=== PATIENT | male | born 1950 | race Caucasian/White ===

== ENCOUNTER → 2020-08-22 08:31 | Outpatient (CLI) | payer MEDICARE, BC, SELFPAY ==
--- NOTE | ~2020-08-22 | CT_ITS ---
EXAMINATION: CT lung screening DATE: 08/22/2020 08:46 INDICATION: Personal history of tobacco dependence, prior smoker with 33 pack year history TECHNIQUE: Computed tomography (CT) of the chest was performed without intravenous contrast. The dose -length product (DLP) was 108.62 mGy-cm. Automated exposure control and iterative reconstruction tech [employer] were employed. COMPARISON: 08/18/2019 FINDINGS: Again seen are stable pulmonary nodules measuring up to 4 mm. No new or suspicious pulmonar y nodule is identified. The lungs are free of acute opacities. There is mild emphysema. No pleural ef fusion or pneumothorax is identified. No pathologically enlarged thoracic lymph nodes are identified. The heart size is normal. Calcified coronary artery atherosclerosis is noted. There is severe thorac ic spondylosis. Punctate pancreatic calcifications are consistent with chronic pancreatitis. IMPRESSION: 1. Lung-RADS category 2: Benign appearance or behavior. Continue annual screening with noncontrast lo w-dose chest CT in 12 months. Reviewed, dictated and finalized at location A. L FRONT DESK ATTENDANT IMPRESSION: 1. Lung-RADS category 2: Benign appearance or behavior. Continue annual screeni ng with noncontrast low-dose chest CT in 12 months.
== END ==
PROVIDERS: PCP Internal Medicine; Visit Provider Internal Medicine
DX: Z87.891 Personal history of nicotine dependence (principal)
CPT/HCPCS: 71271

== ENCOUNTER → 2021-08-24 10:46 | Outpatient (CLI) | payer MEDICARE, BC, SELFPAY ==
--- NOTE | ~2021-08-24 | CT_ITS ---
EXAMINATION:CT lung screening DATE: 08/24/2021 11:00 INDICATION: Personal history of cigarette smoking. Smoker who quit 5 years ago with 30 pack year hist ory. TECHNIQUE: Computed tomography (CT) of the chest was performed without intravenous contrast. Automate d exposure control and iterative reconstruction technique were employed. The dose-length product (DLP ) was 114.66 mGy-cm. COMPARISON: Chest single view 08/22/2020 FINDINGS: There is mild emphysema. There is stable mild scarring at the lung apices. There is a new 3 mm nodule in right upper lobe, likely benign. There are a few scattered 2 mm nodules, likely benign. There is minimal atelectasis bilaterally. No pleural effusion. The heart size is normal. No pericard ial effusion. There are coronary artery calcifications. Calcifications in the pancreas are consistent with chronic pancreatitis. There is severe thoracic spondylosis. IMPRESSION: 1. Lung-RADS category 2: Benign appearance or behavior. Continue annual screening with noncontrast lo w-dose chest CT in 12 months. Reviewed, dictated and finalized at location B. INUOUS CONVEYOR SCREEN DRIER IMPRESSION: 1. Lung-RADS category 2: Benign appearance or behavior. Continue annual screeni ng with noncontrast low-dose chest CT in 12 months.
== END ==
PROVIDERS: Visit Provider Internal Medicine
DX: Z12.2 Encounter for screening for malignant neoplasm of respiratory organs (principal); Z87.891 Personal history of nicotine dependence
CPT/HCPCS: 71271

== ENCOUNTER → 2022-08-27 09:23 | Outpatient (CLI) | payer MEDICARE, BC, SELFPAY ==
--- NOTE | ~2022-08-27 | CT_ITS ---
EXAMINATION: CT lung screening DATE: 08/27/2022 09:37 INDICATION: Personal history of nicotine dependence. TECHNIQUE: Computed tomography (CT) of the chest was performed without intravenous contrast. The dose -length product was 115.19 mGy-cm. Automated exposure control and iterative reconstruction technique were employed. COMPARISON: CT dated 08/24/2021 FINDINGS: Heart size is normal. No significant pleural or pericardial effusion. No thoracic lymphaden opathy. There is atherosclerosis of the aorta and coronary arteries. There is paraseptal emphysema. N o endobronchial lesions. No pneumothorax. No focal consolidation. There are small bilateral pulmonary nodules measuring 3 mm or less without significant interval change from prior examination allowing f or differences of technique. No new pulmonary nodules or masses. Calcifications of the pancreas are c onsistent with chronic pancreatitis. There is stable thoracic spondylosis. IMPRESSION: 1. Lung-RADS category 2: Benign appearance or behavior. Continue annual screening with noncontrast lo w-dose chest CT in 12 months. Reviewed, dictated and finalized at location A. L EXPERT IMPRESSION: 1. Lung-RADS category 2: Benign appearance or behavior. Continue annual screeni ng with noncontrast low-dose chest CT in 12 months.
== END ==
PROVIDERS: PCP Internal Medicine; Visit Provider Internal Medicine
DX: Z12.2 Encounter for screening for malignant neoplasm of respiratory organs (principal); Z87.891 Personal history of nicotine dependence
CPT/HCPCS: 71271

== ENCOUNTER → 2023-08-28 08:19 | Outpatient (CLI) | payer MEDICARE, BC, SELFPAY ==
--- NOTE | ~2023-08-28 | CT_ITS ---
CT Scan of the Chest without Contrast: Clinical Indication: Lung cancer screening, personal history of nicotine dependence Technique: Contiguous sections were acquired throughout the chest without intravenous contrast. Dose reduction technique was used on this scan by utilizing automated exposure control and iterative recon struction technique. The dose-length product (DLP) was 111.82 mGy-cm. COMPARISON: 08/27/2022 Findings: There is no evidence of any significant mediastinal, hilar or axillary lymphadenopathy. Coronary luciano ry calcifications are present. There is no evidence of pleural or pericardial effusion. The lungs are clear. No pulmonary nodules or infiltrates are noted. Images through the upper abdomen reveal pancreatic calcifications, consistent with chronic pancreatit is.. Impression: Lung RADS 1: Negative. 12 month follow-up screening CT advised. Reviewed, dictated and finalized at [facility]. HIATRY PHYSICIAN Impression: Lung RADS 1: Negative. 12 month follow-up screening CT advised.
== END ==
PROVIDERS: PCP Internal Medicine; Visit Provider Internal Medicine
DX: Z13.6 Encounter for screening for cardiovascular disorders (principal); F17.211 Nicotine dependence, cigarettes, in remission
CPT/HCPCS: 71271

== ENCOUNTER 2024-09-20 19:22 | Inpatient (IN) | payer MEDICARE, BC, SELFPAY ==
[2024-09-20] VITALS (33 sets, daily range): BP systolic 106–126; BP diastolic 66–76; PULSE 67–82; RESP 12–21; TEMP 36.7; O2SAT 91–97
--- NOTE | ~2024-09-20 | CT_ITS ---
Non-contrast Head CT History: Syncope Technique: Axial non-contrast imaging of the brain was performed. Dose reduction technique was used on this scan by utilizing automated exposure control and iterative reconstruction technique. The dose -length product (DLP) was 756.67 mGy-cm. Findings: There is a 1 cm hyperdense ovoid lesion which appears to be at the roof of the third ventri munira anteriorly, suggestive of colloid cyst. Focal hemorrhage is a potential alternative consideration . No other significant abnormality identified. The ventricles and subarachnoid spaces are normal in s ize. The calvarium appears normal. The visualized paranasal sinuses and mastoid air cells are clear . Impression: 1 cm hyperdense lesion which appears to be at the roof of the third ventricle, suggestive of colloid cyst. Focal hemorrhage is a potential alternative consideration. Reviewed, dictated and finalized at [facility]. M HAND Impression: 1 cm hyperdense lesion which appears to be at the roof of the third ventricle, suggestive of colloid cyst. Focal hemorrhage is a potential alternative conside ration.
--- NOTE | ~2024-09-20 | XR_ITS ---
CHEST RADIOGRAPH CLINICAL HISTORY: SYncope . COMPARISON: None available TECHNIQUE: Single portable view of the chest. FINDINGS The cardiomediastinal silhouette is unremarkable. The lungs are clear. Visualized osseous structures and soft tissues are unremarkable. IMPRESSION: No focal infiltrate or effusion. Reviewed, dictated and finalized at location A. GY TRADER
--- NOTE | ~2024-09-20 | CT_ITS ---
EXAMINATION: CT brain wo con DATE: 09/23/2024 11:14 INDICATION: Colloid cyst. TECHNIQUE: Computed tomography (CT) of the head was performed without intravenous contrast. The mA wa s adjusted according to patient size. Iterative reconstruction technique was employed. The dose-lengt h product was 605.33 mGy-cm. COMPARISON: Head CT 09/21/2024 FINDINGS: There is no acute ischemic infarct or intracranial hemorrhage. There is a stable 10 x 6 mm hyperdense mass in the anterior third ventricle, consistent with a colloid cyst. The ventricles are n ormal in size. There are likely changes of ocular lens replacement surgeries. There is mucosal thicke marcellus in the paranasal sinuses. The mastoid air cells are normal. IMPRESSION: 1. 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 Reviewed, dictated and finalized at location A. ING AGENCY MANAGER
--- NOTE | 2024-09-20 19:40 | ECG_ITS ---
Test Date: 2024-09-20 19:44:06 Measurements Intervals [place] Rate: 70 P: 21 AR: 144 QRS: 14 QRSD: 94 T: 29 QT: 356 QTc: 385 Interpretive Statements SINUS RHYTHM INCOMPLETE RIGHT BUNDLE BRANCH BLOCK CANNOT R/O SEPTAL INFARCT, AGE INDETERMINATE BORDERLINE T WAVE ABNORMALITY- INFERIOR LEADS BASELINE ARTIFACT- I, II, III, AVR, AVL, AVF, V1-V3 ABNORMAL ECG No previous ECG available for comparison Electronically Signed On 09-20-2024 19:45:57 ACADEMIC COORDINATOR by Dilan Redmond D.O.
[2024-09-20 20:09] LABS: Basophils Percent Auto 0.4 % (0.2-1.2); Eosinophils Percent Auto 0.1 % (0-4.4); Hematocrit 40.3 % (42.0-52.0); Hemoglobin 13.5 g/dL (14.0-18.0); Immature Granulocyte Absolute 0.01 K/mm3 (0.00-0.031); Immature Granulocyte Percent A 0.1 % (0-0.5); Lymphocytes Absolute Auto 0.97 K/mm3 (0.9-3.2); Lymphocytes Percent Auto 14.2 % (18.3-44.2); Mean Corpuscular HGB Conc 33.5 g/dl (32-36); Mean Corpuscular Hemoglobin 30.5 pg (26-34); Mean Corpuscular Volume 91.2 fl (80-100); Monocytes Absolute Auto 0.7 K/mm3 (0.1-0.6); Monocytes Percent Auto 9.7 % (2.6-8.5); Neutrophils Absolute Auto 5.1 K/mm3 (1.3-6.7); Neutrophils Percent Auto 75.5 % (45.5-73.1); Platelet Count Result 147 k/mm3 (150-375); Red Blood Count 4.42 M/mm3 (4.6-6.20); Red Cell Distribution Width 13.1 % (11.5-14.5); White Blood Count 6.8 K/mm3 (4.5-10.0)
[2024-09-20 20:19] LABS: Alanine Aminotransferase 26 U/L (6-50); Albumin Level 3.9 g/dL (3.5-5.1); Alkaline Phosphatase 48 U/L (38-126); Anion Gap 13 mmol/L (4-12); Aspartate Amino Transferase 31 U/L (17-59); Bilirubin,Total 0.9 mg/dL (0.2-1.3); Blood Urea Nitrogen 20 mg/dL (9-20); Calcium 8.2 mg/dL (8.4-10.2); Carbon Dioxide 22 mmol/L (22-30); Chloride 101 mmol/L (98-107); Estimated CRCL calculation 54 ml/min; Estimated Glomerular Filt Rate > 60; Glucose 121 mg/dL (65-110); Potassium 3.9 mmol/L (3.4-5.0); Sodium 136 mmol/L (137-145)
--- NOTE | 2024-09-20 20:41 | ED_ITS ---
HPI - Syncope General Chief Complaint: Syncope <Netta Andres PA-C - Last Filed: 09/21/24 00:52> Stated Complaint: Syncope <Netta Andres PA-C - Last Filed: 09/21/24 00:52> Time Seen by Provider: 09/20/24 20:04 <Netta Andres PA-C - Last Filed: 09/21/24 00:52> History of Present Illness HPI narrative: 73-year-old male with history of hyper lipidemia presents to emergency department for syncopal episode that occurred prior to arrival. Patient presents via EMS from home. is at bedside Who assist with history. States he read the dinner table per the patient slumped over lost consciousness. She immediately contacted 911. When the patient awoke, he was diaphoretic, nauseous and felt weak. When EMS got there the patient felt much better and was signing a refusal form. he does note that when EMS was taking his vital signs on their arrival, his blood pressure was low. his He was walking EMS out he began to pass out again while standing at the door, the patient was lowered to the ground by veterinary surgery technician and his . He did not his head. We woke up again he was diaphoretic and nauseous. The patient was transported to the ED for further evaluation. He denies chest pain, palpitations, shortness of breath, lower extremity edema. Patient states he has been sick with influenza like symptoms for the past 4 days including cough, congestion, generalized weakness and malaise. States he has been having difficulty hydrating himself and eating which she is attributing to the source of why he had the syncopal episodes. He also notes that he has a history of vasovagal episodes that are usually caused by dehydration . He follows with a unemployment inspector at [facility], Dr. Foote, and states he has had several workups in the past including stress test and echocardiograms which have been unremarkable. Patient also notes he has had a Holter monitor few years ago with no abnormality. Denies melena and hematochezia. Pt notes he has been told CT scans of his chest show findings concerning for emphysema but he has not had any PFTs performed. He notes he quit smoking in 2016. <Netta Andres PA-C - Last Filed: 09/21/24 00:52> Related Data Home Medications: Home Medications ?Medication ?Instructions ?Recorded ?Confirmed ?Last Taken ?Type amlodipine 2.5 mg tablet (Norvasc) 2.5 mg PO DAILY 09/20/24 09/20/24 Unknown History aspirin 81 mg tablet,delayed 81 mg PO DAILY 09/20/24 09/20/24 Unknown History release (Adult Aspirin Regimen) atorvastatin 20 mg tablet (Lipitor) 20 mg PO DAILY 09/20/24 09/20/24 Unknown History docusate sodium 100 mg capsule 100 mg PO DAILY 09/20/24 09/20/24 Unknown History (Colace) multivitamin (Daily Multi-Vitamin 1 tablet PO DAILY 09/20/24 09/20/24 Unknown History tablet) sertraline 100 mg tablet 100 mg PO DAILY 09/20/24 09/20/24 Unknown History alprazolam 0.25 mg tablet 0.125 mg PO QID PRN anxiety 09/21/24 09/21/24 Unknown History <Netta Andres PA-C - Last Filed: 09/21/24 00:52> Allergies/Adverse Reactions: Allergies Allergy/AdvReac Type Severity Reaction Status Date / Time No Known Allergies Allergy Verified 09/20/24 19:40 <Netta Andres PA-C - Last Filed: 09/21/24 00:52> Review of Systems 2 Review of Systems: All systems reviewed & are unremarkable except as noted in HPI and below <Netta Andres PA-C - Last Filed: 09/21/24 00:52> [facility] Family History Family History: Family History (Updated 09/21/24 @ 04:48 by Shweta Guzman RN) Father 3-vessel coronary artery disease Acute myocardial infarction <Netta Andres PA-C - Last Filed: 09/21/24 00:52> Social History Social History: Social History Smoking status: Former smoker Tobacco type: cigarettes Alcohol intake: current Drinks per week: 10 Substance use: never Substance use type: does not use Do You Feel Safe in your Home?: Yes Lack of Transportation: No Lack of Food: Never True Current Housing: I Have Housing Concerned About Future Housing: No Difficulty Paying Gas/Electric Bills: No Difficulty Paying for Meds: No Currently Unemployed: No Education: Bachelor's Degree Difficulty w/ Childcare or Family Care: No Spiritual care concerns: No <Netta Andres PA-C - Last Filed: 09/21/24 00:52> Exam 2 Narrative: GENERAL: Well-appearing, well-nourished, and in no acute distress. HEAD: Normocephalic, atraumatic. EYES: PERRLA and EOMI. ENT: Nares clear, no rhinorrhea or epistaxis. Mucous membranes dry NECK: Supple. CHEST: Clear to auscultation. No respiratory distress. HEART: Regular rate and rhythm. No murmur heard. Normal peripheral pulses. ABDOMEN: Soft, nontender, nondistended, normal active bowel sounds. EXTREMITIES: Normal range of motion. No edema. negative Homans bilaterally SKIN: Warm, dry, no rash. NEURO: No focal deficits. Alert and oriented x3 <Netta Andres PA-C - Last Filed: 09/21/24 00:52> Course WIREWORKER/PA Physician Supervision I was made aware of this patient around the time of their arrival. Aware patient had a syncopal episode and was initially refusing to come to hospital but had another episode with EMS present. PA told me patient is being admitted. i was available for consultation while patient in ED but otherwise did not personally evaluate them and was not directly involved in their care. < Kinza Butt MD - Last Filed: 09/21/24 17:44> Vital Signs Vital signs: Vital Signs Temperature 98.1 F 09/20/24 19:24 Pulse Rate 67 09/20/24 19:24 Respiratory Rate 14 09/20/24 19:24 Blood Pressure 108/74 09/20/24 19:24 Pulse Oximetry 95 09/20/24 19:24 Oxygen Delivery Room Air 09/20/24 19:24 Temperature 97.6 F 09/21/24 14:00 Pulse Rate 65 09/21/24 16:00 Respiratory Rate 18 09/21/24 14:00 Blood Pressure 125/70 09/21/24 14:00 Pulse Oximetry 97 09/21/24 14:00 Oxygen Delivery Nasal Cannula 09/21/24 09:43 Oxygen Flow Rate 2 09/21/24 09:43 <Netta Andres PA-C - Last Filed: 09/21/24 00:52> Vital Signs Temperature 98.1 F 09/20/24 19:24 Pulse Rate 67 09/20/24 19:24 Respiratory Rate 14 09/20/24 19:24 Blood Pressure 108/74 09/20/24 19:24 Pulse Oximetry 95 09/20/24 19:24 Oxygen Delivery Room Air 09/20/24 19:24 Temperature 97.6 F 09/21/24 14:00 Pulse Rate 65 09/21/24 16:00 Respiratory Rate 18 09/21/24 14:00 Blood Pressure 125/70 09/21/24 14:00 Pulse Oximetry 97 09/21/24 14:00 Oxygen Delivery Nasal Cannula 09/21/24 09:43 Oxygen Flow Rate 2 09/21/24 09:43 <Kinza Butt MD - Last Filed: 09/21/24 17:44> MDM - Syncope MDM Narrative Medical decision making narrative: 73-year-old male with history of hyperlipidemia reported history of several vasovagal episodes he is followed by cardiology at [facility] presents to the emergency department for 2 syncopal events that occurred prior to arrival. See HPI for further history. Triage vitals With some without blood pressure of 108/74, but otherwise unremarkable. Patient is afebrile and nontoxic appearing. Patient does appear dry on exam, fluids started. Lab work shows no leukocytosis, hemoglobin is 13.5 with no prior for comparison. Chemistries are largely unremarkable. Magnesium within normal limits. Viral swabs are positive for COVID-19 consistent with presentation. Chest x-ray without acute cardiopulmonary findings. EKG shows sinus rhythm with an incomplete right bundle-branch block, normal MT interval, normal QRS duration, normal QTC, no ischemic changes. Troponin is undetectable. BNP within normal limits. Orthostatic vital signs within normal limits. Patient became hypoxic in the ED to 92% with a good plus consistently. He was placed on 2 L nasal cannula D-dimer was obtained which is unremarkable. On repeat exam, lung sounds remain clear. Will provide DuoNeb due to possible bronchospasm and continue to monitor. after DuoNeb, patient was taken off of supplemental O2 and his O2 sats were than 89%. Was placed on 2.5 L nasal cannula now satting 96%. Plan to admit to the hospitalist for new O2 requirement in the setting of COVID-19. Discussed with hospitatlist, Dr. Lanier, who agrees to admission. Advises CT brain. Ct brain negative. Pt admitted to med/tele. <Netta Andres PA-C - Last Filed: 09/21/24 00:52> Lab Data Result diagrams: 09/21/24 05:58 09/21/24 05:58 <Netta Andres PA-C - Last Filed: 09/21/24 00:52> Labs: Lab Results 09/20/24 09/20/24 09/20/24 Range/Units 19:58 19:58 21:50 WBC 6.8 (4.5-10.0) K/mm3 RBC 4.42 L (4.6-6.20) M/mm3 Hgb 13.5 L (14.0-18.0) g/dL Hct 40.3 L (42.0-52.0) % MCV 91.2 (80-100) fl MCH 30.5 (26-34) pg MCHC 33.5 (32-36) g/dl RDW 13.1 (11.5-14.5) % Plt Count 147 L (150-375) k/mm3 MPV 10.0 (7.4-10.4) fl Immature Gran % (Auto) 0.1 (0-0.5) % Neut % (Auto) 75.5 H (45.5-73.1) % Lymph % (Auto) 14.2 L (18.3-44.2) % [place] % (Auto) 9.7 H (2.6-8.5) % Eos % (Auto) 0.1 (0-4.4) % Baso % (Auto) 0.4 (0.2-1.2) % Lymph # (Auto) 0.97 (0.9-3.2) K/mm3 [place] # (Auto) 0.7 H (0.1-0.6) K/mm3 Eos # (Auto) 0.0 (0-0.3) K/mm3 Baso # (Auto) 0.0 (0.0-0.1) K/mm3 Abs Immat Gran (auto) 0.01 (0.00-0.031) K/mm3 Absolute Neuts (auto) 5.1 (1.3-6.7) K/mm3 Absolute Nucleated RBC 0.000 (0.0-0.012) K/mm3 Nucleated RBC % 0.0 (0.0-0.2) % D-Dimer < 0.27 (<0.48) ug/mL Sodium 136 L (137-145) mmol/L Potassium 3.9 (3.4-5.0) mmol/L Chloride 101 (98-107) mmol/L Carbon Dioxide 22 (22-30) mmol/L Anion Gap 13 H (4-12) mmol/L BUN 20 (9-20) mg/dL Creatinine 1.10 (0.7-1.3) mg/dL Estim Creat Clear Calc 54 ml/min Estimated GFR > 60 (59 - ) Glucose 121 H (65-110) mg/dL Calcium 8.2 L (8.4-10.2) mg/dL Magnesium 1.9 Cancelled (1.6-2.3) mg/dL Total Bilirubin 0.9 (0.2-1.3) mg/dL AST 31 (17-59) U/L ALT 26 (6-50) U/L Alkaline Phosphatase 48 (38-126) U/L Troponin I < 0.012 (0.000-0.034) ng/mL NT-Pro-B Natriuret Pep 91 (19.9-100) pg/mL Total Protein 6.0 L (6.3-8.2) g/dL Albumin 3.9 (3.5-5.1) g/dL Influenza A (RT-PCR) Negative (Negative) Influenza B (RT-PCR) Negative (Negative) RSV (RT-PCR) Negative (Negative) SARS-CoV-2 RNA (RT-PCR) Positive A (Negative) 09/21/24 Range/Units 05:58 WBC 5.1 (4.5-10.0) K/mm3 RBC 4.34 L (4.6-6.20) M/mm3 Hgb 13.3 L (14.0-18.0) g/dL Hct 39.6 L (42.0-52.0) % MCV 91.2 (80-100) fl MCH 30.6 (26-34) pg MCHC 33.6 (32-36) g/dl RDW 12.8 (11.5-14.5) % Plt Count 143 L (150-375) k/mm3 MPV 10.0 (7.4-10.4) fl Immature Gran % (Auto) 0.2 (0-0.5) % Neut % (Auto) 80.1 H (45.5-73.1) % Lymph % (Auto) 12.1 L (18.3-44.2) % [place] % (Auto) 7.4 (2.6-8.5) % Eos % (Auto) 0.0 (0-4.4) % Baso % (Auto) 0.2 (0.2-1.2) % Lymph # (Auto) 0.62 L (0.9-3.2) K/mm3 [place] # (Auto) 0.4 (0.1-0.6) K/mm3 Eos # (Auto) 0.0 (0-0.3) K/mm3 Baso # (Auto) 0.0 (0.0-0.1) K/mm3 Abs Immat Gran (auto) 0.01 (0.00-0.031) K/mm3 Absolute Neuts (auto) 4.1 (1.3-6.7) K/mm3 Absolute Nucleated RBC 0.000 (0.0-0.012) K/mm3 Nucleated RBC % 0.0 (0.0-0.2) % D-Dimer (<0.48) ug/mL Sodium 139 (137-145) mmol/L Potassium 4.4 (3.4-5.0) mmol/L Chloride 103 (98-107) mmol/L Carbon Dioxide 24 (22-30) mmol/L Anion Gap 12 (4-12) mmol/L BUN 19 (9-20) mg/dL Creatinine 0.98 (0.7-1.3) mg/dL Estim Creat Clear Calc 60 ml/min Estimated GFR > 60 (59 - ) Glucose 122 H (65-110) mg/dL Calcium 8.4 (8.4-10.2) mg/dL Magnesium 2.1 (1.6-2.3) mg/dL Total Bilirubin (0.2-1.3) mg/dL AST (17-59) U/L ALT (6-50) U/L Alkaline Phosphatase (38-126) U/L Troponin I (0.000-0.034) ng/mL NT-Pro-B Natriuret Pep (19.9-100) pg/mL Total Protein (6.3-8.2) g/dL Albumin (3.5-5.1) g/dL Influenza A (RT-PCR) (Negative) Influenza B (RT-PCR) (Negative) RSV (RT-PCR) (Negative) SARS-CoV-2 RNA (RT-PCR) (Negative) <Netta Andres PA-C - Last Filed: 09/21/24 00:52> Lab Results 09/20/24 09/20/24 09/20/24 Range/Units 19:58 19:58 21:50 WBC 6.8 (4.5-10.0) K/mm3 RBC 4.42 L (4.6-6.20) M/mm3 Hgb 13.5 L (14.0-18.0) g/dL Hct 40.3 L (42.0-52.0) % MCV 91.2 (80-100) fl MCH 30.5 (26-34) pg MCHC 33.5 (32-36) g/dl RDW 13.1 (11.5-14.5) % Plt Count 147 L (150-375) k/mm3 MPV 10.0 (7.4-10.4) fl Immature Gran % (Auto) 0.1 (0-0.5) % Neut % (Auto) 75.5 H (45.5-73.1) % Lymph % (Auto) 14.2 L (18.3-44.2) % [place] % (Auto) 9.7 H (2.6-8.5) % Eos % (Auto) 0.1 (0-4.4) % Baso % (Auto) 0.4 (0.2-1.2) % Lymph # (Auto) 0.97 (0.9-3.2) K/mm3 [place] # (Auto) 0.7 H (0.1-0.6) K/mm3 Eos # (Auto) 0.0 (0-0.3) K/mm3 Baso # (Auto) 0.0 (0.0-0.1) K/mm3 Abs Immat Gran (auto) 0.01 (0.00-0.031) K/mm3 Absolute Neuts (auto) 5.1 (1.3-6.7) K/mm3 Absolute Nucleated RBC 0.000 (0.0-0.012) K/mm3 Nucleated RBC % 0.0 (0.0-0.2) % D-Dimer < 0.27 (<0.48) ug/mL Sodium 136 L (137-145) mmol/L Potassium 3.9 (3.4-5.0) mmol/L Chloride 101 (98-107) mmol/L Carbon Dioxide 22 (22-30) mmol/L Anion Gap 13 H (4-12) mmol/L BUN 20 (9-20) mg/dL Creatinine 1.10 (0.7-1.3) mg/dL Estim Creat Clear Calc 54 ml/min Estimated GFR > 60 (59 - ) Glucose 121 H (65-110) mg/dL Calcium 8.2 L (8.4-10.2) mg/dL Magnesium 1.9 Cancelled (1.6-2.3) mg/dL Total Bilirubin 0.9 (0.2-1.3) mg/dL AST 31 (17-59) U/L ALT 26 (6-50) U/L Alkaline Phosphatase 48 (38-126) U/L Troponin I < 0.012 (0.000-0.034) ng/mL NT-Pro-B Natriuret Pep 91 (19.9-100) pg/mL Total Protein 6.0 L (6.3-8.2) g/dL Albumin 3.9 (3.5-5.1) g/dL Influenza A (RT-PCR) Negative (Negative) Influenza B (RT-PCR) Negative (Negative) RSV (RT-PCR) Negative (Negative) SARS-CoV-2 RNA (RT-PCR) Positive A (Negative) 09/21/24 Range/Units 05:58 WBC 5.1 (4.5-10.0) K/mm3 RBC 4.34 L (4.6-6.20) M/mm3 Hgb 13.3 L (14.0-18.0) g/dL Hct 39.6 L (42.0-52.0) % MCV 91.2 (80-100) fl MCH 30.6 (26-34) pg MCHC 33.6 (32-36) g/dl RDW 12.8 (11.5-14.5) % Plt Count 143 L (150-375) k/mm3 MPV 10.0 (7.4-10.4) fl Immature Gran % (Auto) 0.2 (0-0.5) % Neut % (Auto) 80.1 H (45.5-73.1) % Lymph % (Auto) 12.1 L (18.3-44.2) % [place] % (Auto) 7.4 (2.6-8.5) % Eos % (Auto) 0.0 (0-4.4) % Baso % (Auto) 0.2 (0.2-1.2) % Lymph # (Auto) 0.62 L (0.9-3.2) K/mm3 [place] # (Auto) 0.4 (0.1-0.6) K/mm3 Eos # (Auto) 0.0 (0-0.3) K/mm3 Baso # (Auto) 0.0 (0.0-0.1) K/mm3 Abs Immat Gran (auto) 0.01 (0.00-0.031) K/mm3 Absolute Neuts (auto) 4.1 (1.3-6.7) K/mm3 Absolute Nucleated RBC 0.000 (0.0-0.012) K/mm3 Nucleated RBC % 0.0 (0.0-0.2) % D-Dimer (<0.48) ug/mL Sodium 139 (137-145) mmol/L Potassium 4.4 (3.4-5.0) mmol/L Chloride 103 (98-107) mmol/L Carbon Dioxide 24 (22-30) mmol/L Anion Gap 12 (4-12) mmol/L BUN 19 (9-20) mg/dL Creatinine 0.98 (0.7-1.3) mg/dL Estim Creat Clear Calc 60 ml/min Estimated GFR > 60 (59 - ) Glucose 122 H (65-110) mg/dL Calcium 8.4 (8.4-10.2) mg/dL Magnesium 2.1 (1.6-2.3) mg/dL Total Bilirubin (0.2-1.3) mg/dL AST (17-59) U/L ALT (6-50) U/L Alkaline Phosphatase (38-126) U/L Troponin I (0.000-0.034) ng/mL NT-Pro-B Natriuret Pep (19.9-100) pg/mL Total Protein (6.3-8.2) g/dL Albumin (3.5-5.1) g/dL Influenza A (RT-PCR) (Negative) Influenza B (RT-PCR) (Negative) RSV (RT-PCR) (Negative) SARS-CoV-2 RNA (RT-PCR) (Negative) <Kinza Butt MD - Last Filed: 09/21/24 17:44> Discharge Plan Discharge Clinical Impression: COVID-19, Acute hypoxic respiratory failure Syncope Qualifiers: Syncope type: unspecified Qualified Code(s): R55 - Syncope and collapse <Netta Andres PA-C - Last Filed: 09/21/24 00:52> Patient Disposition: Still a Patient <Netta Andres PA-C - Last Filed: 09/21/24 00:52> Condition: Stable <Netta Andres PA-C - Last Filed: 09/21/24 00:52>
[2024-09-20 20:45] LABS: Influenza A QL RT-PCR Negative (Negative); Influenza B QL RT-PCR Negative (Negative); RSV RNA, RT-PCR Negative (Negative); SARS-CoV-2 RNA PCR Positive (Negative)
[2024-09-20 20:56] LABS: Magnesium 1.9 mg/dL (1.6-2.3)
[2024-09-20 21:09] LABS: NT Pro B Type Natriuretic Pept 91 pg/mL (19.9-100); Troponin I < 0.012 ng/mL (0.000-0.034)
--- NOTE | 2024-09-20 21:12 | PC.NURSE ---
Patient placed on 2L via NC for RA sat of 88%. PA notified.
--- OUTSIDE RECORDS SUMMARY | 2024-09-20 21:14 | XMS_ITS | Clinical Summary ---
Author Organization [facility] Address [address] [place] [address] Care Team Providers Care Rental Sales Agent Name Role Phone Chase Soler MD Primary Care Provider [phone] Micheline Crews MD Unavailable [phone] Isiah Martinez MD Unavailable [phone] Cuco Smith MD Unavailable [phone] Allergies No known active allergies Medications ibuprofen 200 MG tablet Take 1 tablet (200 mg total) by mouth every 8 (eight) hours as needed for Pain. Active Multiple Vitamins-Minerals (MULTIVITAMIN ADULT EXTRA C OR) Take 1 tablet by mouth as needed. Active aspirin EC 81 MG tablet Take 1 tablet (81 mg total) by mouth daily. Active docusate sodium 100 MG capsule Take 1 capsule (100 mg total) by mouth daily. Active ORAL APPLIANCE, DME,Indications:Obstruc tive sleep apnea syndrome, mild,Insomnia, unspecified type Take 1 Device by mouth nightly. 1 Device 022 Active amLODIPine (NORVASC) 2.5 MG tablet TAKE 1 TABLET(2.5 MG) BY MOUTH DAILY 90 tablet 3 024 Active sertraline (ZOLOFT) 100 MG tabletIndications:Obses sive-compulsive disorder, unspecified type TAKE 1 TABLET(100 MG) BY MOUTH DAILY 90 tablet 1 024 Active atorvastatin (LIPITOR) 40 MG tabletIndications:Pure hypercholesterolemia Take 1 tablet (40 mg total) by mouth daily. 90 tablet 3 025 Active ALPRAZolam (XANAX) 0.25 MG tabletIndications:Obses sive-compulsive disorder, unspecified type TAKE 1 TABLET(0.2 5 MG) BY MOUTH EVERY NIGHT NEEDED FOR SLEEP 30 tablet 025 Active ALPRAZolam (XANAX) 0.25 MG tabletIndications:Obses sive-compulsive disorder, unspecified type TAKE 1 TABLET(0.2 5 MG) BY MOUTH EVERY NIGHT NEEDED FOR SLEEP 30 tablet 024 2024 Discontinued Active Problems Problem Noted Date Diagnosed Date Primary insomnia 07/17/2022 Obstructive sleep apnea syndrome, mild Coronary artery calcification seen on CT scan Constipation 08/12/2020 Cataract 12/24/2018 Bilateral carotid artery stenosis 12/07/2018 Mild emphysema (CMS/HCC HHS/HCC) 08/15/2018 Overview (08/15/2018): On CT from 08/08/2018 Abnormal ECG 02/03/2018 Family history of premature CAD 02/03/2018 OCD (obsessive compulsive disorder) 06/13/2016 BPH with urinary obstruction 12/06/2015 Anxiety state 12/05/2006 Pure hypercholesterolemia Resolved Problems Problem Noted Date Diagnosed Date Resolved Date Scrotal mass 12/20/2019 01/17/2023 Near syncope 12/03/2019 01/17/2023 Smoker 09/09/2019 01/17/2023 Encounters Date Type Department Care Team Description 09/04/2024 Telephone [facility] Family & Internal Medicine [address] [phone] Chase Soler MD Radiology Results (CT lung screening) 08/31/2024 9:33 AM MIX MAKER - 08/31/2024 11:59 PM MIX MAKER Hospital Encounter [facility] [address] [place] [address] Chase Soler MD Discharge Disposition: Home or Self Care (Routine Discharge) 08/31/2024 Scan [facility] SRVCS Scanned, Doc Med Group CT (SCAN) 08/31/2024 Travel 08/19/2024 1:00 PM MIX MAKER Office Visit [facility] Family & Internal Medicine [address] [phone] Chase Soler MD Follow Up; Obsessive Compulsive Disorder; Hyperlipidemia (Patient was told to increase statin dose by cardiology, patient would like to discuss with PCP.); Coronary Artery Disease; Obstructive Sleep Apnea ; Emphysema; Lab Results (Patient noticed PSA value is slightly increased from last check); Orders (Patient would like LDCT lung screening ordered) 08/19/2024 Travel 07/30/2024 Travel 07/02/2024 MyChart Message Enc [facility] Family & Internal [address] [phone] Chase Soler MD July lab orders (at [facility]) 06/24/2024 11:30 AM MIX [facility]KER [facility] [address] Micheline Crews MD Coronary Artery Disease; Lipids; Follow Up (annual) 06/24/2024 Travel from Last 3 Months Immunizations Name Administration Dates Next Due Fluzone High Dose - >Age 65 (Prefilled Syringe) 05/27/2023,05/25/2022,05/31/2020,2018,06/26/2017,06/13/2016 Influenza (Generic) 06/02/2018 Influenza Adult (Generic) 05/25/2022,06/01/2021 MODERNA COVID-19 (12+) MRNA, LNP-S, PF, 100 MCG/ 0.5 ML DOSE 06/12/2021,10/19/2020,09/21/2020 MODERNA COVID-19 (PROBATION MANAGER TEO NAEEM), MRNA, LNP-S, PF, 50 MCG/ 0.25 ML DOSE 11/24/2021 Pneumococcal (Pneumovax 23) 01/15/2022, 3 Pneumococcal (Prevnar 13) 12/11/2016 Shingrix 09/20/2023,07/23/2023 Td (Tenivac) preservative free 04/19/2005 Td, Adsorbed, Preservative F ree, Adult Use, Lf Unspecified 04/19/2005 Tdap (Generic) 06/13/2016,06/13/2016 Zoster (Zostavax) [address] Unt/0.65Ml 04/25/2011 Family History Medical History Relation Comments Heart Disease Brother 1 Open Heart Brother 1 Heart Attack Father Heart Disease Father Mental Health Father Open Heart Father pacemaker Maternal Grandfather schizophrenia Maternal Grandmother Early Mother Mental Health Mother nosebleed Mother of bleeding after child Relation Status Comments Brother 1 (Age 68) Brother 2 Alive Father (Age 83) Maternal Grandfather (Age 88) Maternal Grandmother Mother (Age 29) Paternal Grandfather (Age 87) Paternal Grandmother (Age 75) Sister Alive Social History Tobacco Use Types Packs/Day Years Used Date Smoking Tobacco: Former Cigarettes 1 33 1 08/12/1982 - 06/12/2016 Smokeless Tobacco: Never Tobacco Cessation:Counseling Given: Yes Alcohol Use Standard Drinks/Week Comments Yes 10 (1 standard drink = 0.6 oz pure alcohol) 2 drinks a day of red wine or beer AUDIT-C Answer Date Recorded Frequency of Alcohol Consumption 4 or more times a week 05/08/2018 Average Number of Drinks 1 or 2 018 Frequency of Binge Drinking Never 04/13 PHQ-2 Answer Date Recorded Patient Health Questionnaire-2 Score 0 08/19/2024 Sex and Gender Information Value Date Recorded Sex Assigned at Male 07/01/2018 9:32 AM MIX MAKER Legal Sex Male 6:12 PM CDT Gender Identity Male 07/01/2018 9:32 AM MIX MAKER Sexual Orientation Straight 07/01/2018 9: 32 AM MIX MAKER Occupation Industry Job Start Date Job End Date social security/ disability program in [place] Not on file Not on file Not on file Last Filed Vital Signs Vital Sign Reading Time Taken Comments Blood Pressure 110/84 08/19/2024 1:43 PM MIX MAKER Pulse 66 08/19/2024 1:43 PM MIX MAKER Temperature 36.8 C (98.2 F) 08/19/2024 1:43 PM MIX MAKER Respiratory Rate 18 08/19/2024 1:43 PM MIX MAKER Oxygen Saturation 96% 08/19/2024 1:43 PM MIX MAKER Inhaled Oxygen Concentration - - Weight 84.8 kg (186 lb 14.4 oz) 08/19/2024 1:43 PM MIX MAKER Height 177.8 cm (5' 10 ) 08/19/2024 1:43 PM MIX MAKER Body Mass Index 26.82 08/19/2024 1:43 PM MIX MAKER Plan of Treatment Upcoming Encounters Date Type Department Care Team (Late st Contact Info) Description 02/16/2025 8:00 AM CDT Laboratory Only [facility] Family & Internal Medicine [address] [phone] Chase Soler MD [address] [place] [address] 02/23/2025 1:20 PM CDT Office Visit [facility] Family & Internal [address] [phone] Chase Soler MD [address] [place] [address] 06/24/2025 11:00 AM MIX MAKER Office Visit [facility] [address] [place], [place] [phone] Fanny Day APRN [facility]. [address] [place], [place] [address] Health Maintenance Due Date Last Done Comments Annual Medicare Wellness Visit 01/12/2022 01/11/2021 RSV Immunization or 60+ Years (1 - Risk 60-74 years 1-dose series) 12/19/2024 Postponed fro m 2009 (Going to Outside Clinic) Colorectal Cancer Screening Colonoscopy (10 Years) 05/15/2026 05/15/2016 DTaP, Tdap and Td Vaccines (3 - Td or Tdap) 06/13/2026 06/13/2016, 06/13/2016, 04/19/2005, Additional history exists AAA SCREENING Completed 05/31/2012 Hepatitis C Completed 12/17/2016 Pneumococcal Vaccine: 65+ Years Completed 01/15/2022, 12/11/2016, 05/12/2013 Zoster Vaccines Completed 09/20/2023, 07/12, 04/25/2011 COVID-19 Vaccine Completed 06/04/2024, , 05/25/2022, Additional history exists Influenza Adult Completed 06/13/2024, 05/12, 05/25/2022, Additional history exists PHQ-2 (Physician [place]) Completed 08/19/2024 Meningococcal B Vaccine Aged Out No l onger eligible based on patient's age to complete this topic Meningococcal Vaccine Aged Out No addis vern eligible based on patient's age to complete this topic RSV Immunizations Under 20 Months Aged Out No longer eligible based on patient's age to complete this topic Medical Devices Implanted Type Area Glass Blower Helper Device Identifier Shelf Expiration Date Model / Serial / Lot Urolift - [id number] Implanted:Qty: 4 on 06/12/2019 by Cuco Smith MD at [facility] N/A: Prostate TELEFLEX MEDICAL 09/28/2020 [id number] / / [id number] Procedures Procedure Name Priority Date/Time Associated Diagnosis Comments CT LUNG SCREENING Routine 08/31/2024 9:49 AM MIX MAKER Nicotine dependence, cigarettes, in remission CT GENERIC 08/31/2024 PSA, TOTAL AND FREE Routine 07/22/2024 8:08 AM MIX MAKER TSH W/REFLEX Routine 07/22/2024 8:08 AM MIX MAKER URINALYSIS Routine 07/22/2024 8:08 AM MIX MAKER CBC W/DIFF AUTOMATED Routine 07/22/2024 8:08 AM MIX MAKER COMPREHENSIVE METABOLIC PANEL Routine 07/22/2024 8:08 AM MIX MAKER LIPID PANEL Routine 07/22/2024 8:08 AM MIX MAKER CK (CPK) Routine 07/22/2024 8:08 AM MIX MAKER Pure hypercholesterolemia ELECTROCARDIOGRAM (NON MIDMARK ACQUIRED) Routine 06/24/2024 11:28 AM MIX MAKER Pure hypercholesterolemia HEPATITIS C ANTIBODY Routine 12/17/2016 9:22 AM CDT COLONOSCOPY GENERIC (SCAN ORDER) Routine 05/15/2016 from Last 3 Months or Most Recently Relevant to Health Maintenance Results * CT LUNG SCREENING (08/31/2024 9:49 AM MIX MAKER) Anatomical Region Laterality Modality Chest Computed Tomogra phy 09/02/2024 9:51 AM MIX MAKER Impressions 09/02/2024 9:54 AM MIX MAKER IMPRESSION: 1. Lung-RADS Category 2: Benign appearance or behavior. Nodules with a very low likelihood of becoming a clinically active cancer due to size or lack of growth. 2. LUNG-RADS category S: Negative, no new/unknown potentially significant incidental findings requiring urgent additional evaluation. 3. Other incidental findings as above. RECOMMENDATIONS: Follow-up LDCT Chest in 12 months (on or around 09/01/2025). Referred By: CHASE SOLER Interpreted By: Deo Guerrero MD, 09/02/2024 9:51 AM Narrative 09/02/2024 9:54 AM MIX MAKER [address] [address] EXAM: LUNG SCREENING LOW-DOSE CT THORAX WITHOUT CONTRAST DATE: 08/31/2024 HISTORY: Asymptomatic patient meeting NCCN high-risk criteria for lung screening. COMPARISON: None available. TECHNIQUE: Noncontrast, helical, low-dose CT (LDCT) chest per standard departmental protocol. Automated exposure control was utilized for dose reduction. FINDINGS: Lung Screening Specific (LUNG-RADS): 2 mm solid nodule right middle lobe axial image 95. Baseline. Lung RADS 2. 3 mm solid nodule right upper lobe axial image 58. Baseline. Lung RADS 2. 3 mm solid nodule left upper lobe axial image 92. Baseline. Lung RADS 2. Potentially Significant Incidentals (LUNG-RADS category S): None. Pulmonary Incidentals: Mild upper lobe predominant pulmonary emphysema. Small right Bochdalek hernia. Scattered calcified granulomatous disease. Other Incidentals: Old healed left rib fracture. Ghbr-vx-[id number] thoracic spondylosis. Mild to moderate atherosclerotic calcific lesions of the thoracic aorta and coronary arteries. No suspicious adenopathy. Pancreatic parenchymal calcifications which can be seen in setting of chronic pancreatitis. Procedure Note Deo Guerrero MD - 09/02/[address] [address] EXAM: LUNG SCREENING LOW-DOSE CT THORAX WITHOUT CONTRAST DATE: 08/31/2024 HISTORY: Asymptomatic patient meeting NCCN high-risk criteria for lungscreening. COMPARISON: None available. TECHNIQUE: Noncontrast, helical, low-dose CT (LDCT) chest per standarddepartmental protocol. Automated exposure control was utilized for dosereduction. FINDINGS: Lung Screening Specific (LUNG-RADS): 2 mm solid nodule right middle lobe axial image 95. Baseline. Lung RADS2. 3 mm solid nodule right upper lobe axial image 58. Baseline. Lung RADS2. 3 mm solid nodule left upper lobe axial image 92. Baseline. Lung RADS2. Potentially Significant Incidentals (LUNG-RADS category S): None. Pulmonary Incidentals: Mild upper lobe predominant pulmonary emphysema.Small right Bochdalek hernia. Scattered calcified granulomatousdisease. Other Incidentals: Old healed left rib fracture. Xxhs-vk-jkxtncdtstpfqwze spondylosis. Mild to moderate atherosclerotic calcific lesionsof the thoracic aorta and coronary arteries. No suspicious adenopathy.Pancreatic parenchymal calcifications which can be seen in setting ofchronic pancreatitis. IMPRESSION: 1. Lung-RADS Category 2: Benign appearance or behavior. Nodules with momo low likelihood of becoming a clinically active cancer due to size orlack of growth. 2. LUNG-RADS category S: Negative, no new/unknown potentially significantincidental findings requiring urgent additional evaluation. 3. Other incidental findings as above. RECOMMENDATIONS: Follow-up LDCT Chest in 12 months (on or around09/01/2025). Referred By: CHASE SOLER Interpreted By: Deo Guerrero MD, 09/02/2024 9:51 AM us Chase Soler MD CT Final Result * CT GENERIC (08/31/2024) Anatomical Region Laterality Modality Other 08/31/2024 [facility] Scanned SCANNING Final Resu lt * TSH W/REFLEX (07/22/2024 8:08 AM MIX MAKER) TSH 2.82 0.40 - 4.50 mIU/L [facility] 07/22/2024 8:08 AM MIX MAKER 07/22/2024 8:19 AM MIX MAKER Narrative [facility] [place] [facility] - 07/24/2024 2:30 PM MIX MAKER FASTING:YES FASTING: YES Resulting Agency Comment Performing Organization Information: Site ID: RENEE Name: [facility] Address: [address] [place] [phone] Director: Rush Harvey MD Chase Soler MD LABORATORY Final Result [facility] [employer] [facility] [id number] [place] [address], * URINALYSIS (07/22/2024 8:08 AM MIX MAKER) COLOR (U) YELLOW YELLOW [facility] APPEARANCE SEMEN CLEAR CLEAR [facility] SPECIFIC GRAVITY (U) 1.014 1.001 - 1.035 [facility] PH (U) 7.5 5.0 - 8.0 [facility] URINE GLUCOSE NEGATIVE NEGATIVE [facility] KETONE (U) NEGATIVE NEGATIVE [facility] BLOOD (U) NEGATIVE NEGATIVE [facility] PROTEIN (U) NEGATIVE NEGATIVE [facility] 07/22/2024 8:08 AM MIX MAKER 07/22/2024 8:19 AM MIX MAKER Narrative [facility] [place] [facility] - 07/24/2024 2:30 PM MIX MAKER FASTING:YES FASTING: YES Resulting Agency Comment Performing Organization Information: Site ID: RENEE Name: [facility] Address: [address] [place] [address], [place] [address] Director: Rush Harvey MD us Chase Soler MD URINE ORDERABLES Final Result [facility] [place] [place] [address] [address] [address], * (ABNORMAL) COMPREHENSIVE METABOLIC PANEL (07/22/2024 8:08 AM MIX MAKER) GLUCOSE 102(H) 65 - 99 mg/dL [facility] Comment: Fasting reference interval For someone without known diabetes, a glucose value between 100 and 125 mg/dL is consistent with prediabetes and should be confirmed with a follow-up test. BUN 18 7 - 25 mg/dL [facility] [email or web address] [facility] CREATININE S/P/B 1.11 0.70 - 1.28 mg/dL [facility] [email or web address] [facility] GFR ESTIMATE 70 > OR = 60 mL/min/1. 73m2 [facility] [email or web address] [facility] BUN CREATININE RATIO SEE NOTE: (calc) [facility] [email or web address] [facility] Comment: Not Reported: BUN and Creatinine are within reference range. SODIUM S/P/B 139 135 - 146 mmol/L [facility] [email or web address] [facility] POTASSIUM S/P/B 4.2 3.5 - 5.3 mmol/L [facility] CHLORIDE S/P/B 103 98 - 110 mmol/L [facility] CO2 27 20 - 32 mmol/L [facility] [email or web address] [facility] CALCIUM S/P/B 9.1 8.6 - 10.3 mg/dL [facility] [email or web address] [facility] TOTAL PROTEIN S/P/B 6.7 6.1 - 8.1 g/dL [facility] [email or web address] [facility] ALBUMIN S/P/B 4.3 3.6 - 5.1 g/dL [facility] [email or web address] [facility] GLOBULIN 2.4 1.9 - 3.7 g/dL (calc) [facility] [email or web address] [facility] ALBUMIN/GLOBULI N RATIO 1.8 1.0 - 2.5 (calc) [facility] DIAGNOSTICS [facility] BILIRUBIN TOTAL S/P/B 0.7 0.2 - 1.2 mg/dL [facility] DIAGNOSTICS [facility] ALKALINE PHOSPHATASE S/P/B 58 35 - 144 U/L [facility] [email or web address] [facility] AST 20 10 - 35 U/L [facility] [email or web address] [facility] ALT 21 9 - 46 U/L [employer] [facility] 07/22/2024 8:08 AM MIX MAKER 07/22/2024 8:19 AM MIX MAKER Narrative [facility] - 07/24/2024 2:30 PM MIX MAKER FASTING:YES FASTING: YES Resulting Agency Comment Performing Organization Information: Site ID: [place] Name: [facility] Address: [address] [address] Director: Rush Harvey MD Chase Soler MD LABORATORY Final Result [facility] [place] [address] [address] [address], * LIPID PANEL (07/22/2024 8:08 AM MIX MAKER) CHOLESTEROL 158 <200 mg/dL [facility] HDL 45 > OR = 40 mg/dL [facility] TRIGLYCERIDES 83 <150 mg/dL [facility] LDL (CALCULATED) 96 mg/dL (calc) [facility] Comment: Reference range: <100 Desirable range <100 mg/dL for primary prevention; <70 mg/dL for patients with CHD or diabetic patients with > or = 2 CHD risk factors. LDL-C is now calculated using the Ulices-Hanane calculation, which is a validated novel method providing better accuracy than the Friedewald equation in the estimation of LDL-C. Uilces GONZALEZ et al. CARLTON. 2013;310(19): 0980-4381 (http://education.[employer]/faq/JVE783) CHOL/HDL RATIO 3.5 <5.0 (calc) [facility] NON HDL CHOLESTEROL 113 <130 mg/dL (calc) [facility] Comment: For patients with diabetes plus 1 major ASCVD risk factor, treating to a non-HDL-C goal of <100 mg/dL (LDL-C of <70 mg/dL) is considered a therapeutic option. 07/22/2024 8:08 AM MIX MAKER 07/22/2024 8:19 AM MIX MAKER Narrative [facility] - 07/24/2024 2:30 PM MIX MAKER FASTING:YES FASTING: YES Resulting Agency Comment Performing Organization Information: Site ID: [place]ENE Name: Fl[facility] Miller Address: [address] [phone] Director: Rush Harvey MD us Chase Soler MD LABORATORY Final Result [facility] [address] [address] [address], [place] * (ABNORMAL) PSA, TOTAL AND FREE (07/22/2024 8:08 AM MIX MAKER) PSA TOTAL 6.9(H) < OR = 4.0 ng/mL [facility] PSA Free 1.7 ng/mL [facility] PSA % Free 25(L) >25 % (calc) [facility] Comment: PSA(ng/mL) Free PSA(%) Estimated(x) Probability of Cancer(as%) 0-2.5 (*) Approx. 1 2.6-4.0(1) 0-27(2) 24(3) 4.1-10(4) 0-10 56 11-15 28 16-20 20 21-25 16 >or =26 8 >10(+) N/A >50 References:(1)Josiasona et al.:Urology 60: 469-474 (2001) (2)Josiasona et al.:J.Urol 168: 922-925 (2001) Free PSA(%) Sensitivity(%) Specificity(%) < or = 25 85 19 < or = 30 93 9 (3)Catalona et al.:CARLTON 277: 3372-1836 (1996) (4)Catalona et al.:CARLTON 279: 2086-2523 (1997) (x)These estimates vary with age, ethnicity, family history and PATTI results. (*)The diagnostic usefulness of % Free PSA has not been established in patients with total PSA below 2.6 ng/mL (+)In men with PSA above 10 ng/mL, prostate cancer risk is determined by total PSA alone. The Total PSA value from this assay system is standardized against the equimolar PSA standard. The test result will be approximately 20% higher when compared to the WHO-standardized Total PSA (Siemens assay). Comparison of serial PSA results should be interpreted with this fact in mind. PSA was performed using the Gaby [place] Immunoassay method. Values obtained from different assay methods cannot be used interchangeably. PSA levels, regardless of value, should not be interpreted as absolute evidence of the presence or absence of disease. 07/22/2024 8:08 AM MIX MAKER 07/22/2024 8:19 AM MIX MAKER Narrative [facility] [place] [facility] - 07/24/2024 2:30 PM MIX MAKER FASTING:YES FASTING: YES Resulting Agency Comment Performing Organization Information: Site ID: [place] Name: [facility] Address: [address] [place] [phone] Director: Pedro Bright Chase Soler MD LABORATORY Final Result [facility] [address] [place] [address] * CBC W/DIFF AUTOMATED (07/22/2024 8:08 AM MIX MAKER) WBC 4.6 3.8 - 10.8 Thousand/u L [employer] [facility] RBC 5.24 4.20 - 5.80 Million/uL [facility] HGB 16.2 13.2 - 17.1 g/dL [facility] HCT 49.2 38.5 - 50.0 % [facility] MCV 93.9 80.0 - 100.0 fL [facility] [place] MCH 30.9 27.0 - 33.0 pg [facility] MCHC 32.9 32.0 - 36.0 g/dL [facility] Comment: For adults, a slight decrease in the calculated MCHC value (in the range of 30 to 32 g/dL) is most likely not clinically significant; however, it should be interpreted with caution in correlation with other red cell parameters and the patient's clinical condition. RDW 12.7 11.0 - 15.0 % [facility] PLT 219 140 - 400 Thousand/u L [facility] MPV 10.1 7.5 - 12.5 fL [facility] ABS. NEUTROPHILS 2,259 1,500 - 7,800 cells/uL [facility] ABS. LYMPHOCYTES 1,803 850 - 3,900 cells/uL [facility] ABS. MONOCYTES 400 200 - 950 cells/uL [facility] ABS. EOSINOPHILS 87 15 - 500 cells/uL [facility] ABS. BASOPHILS 51 0 - 200 cells/uL [facility] SEG NEUTROPHILS 49.1 % [facility] LYMPHOCYTES 39.2 % [facility] MONOCYTES 8.7 % [facility] EOSINOPHILS 1.9 % [facility] BASOPHILS 1.1 % [facility] 07/22/2024 8:08 AM MIX MAKER 07/22/2024 8:19 AM MIX MAKER Narrative [facility] [place] [facility] - 07/24/2024 2:30 PM MIX MAKER FASTING:YES FASTING: YES Resulting Agency Comment Performing Organization Information: Site ID: RENEE Name: [facility] [employer] Address: [address] [place] [phone] Director: Rush Harvey MD us Chase Soler MD LABORATORY Final Result Performing Organization Address [facility] Co de Phone Number [facility] [place] [facility] [place] [facility] [address] [address], [place] * CK (CPK) (07/22/2024 8:08 AM MIX MAKER) TOTAL CK 178 44 - 196 U/L [facility] [email or web address] [facility] 07/22/2024 8:08 AM MIX MAKER 07/22/2024 8:19 AM MIX MAKER Narrative [facility] [place] [facility] - 07/24/2024 2:30 PM MIX MAKER FASTING:YES FASTING: YES Resulting Agency Comment Performing Organization Information: Site ID: RENEE Name: [facility] [employer] Address: [address] [place] [phone] Director: Rush Harvey MD us Chase Soler MD LABORATORY Final Result Performing Organization Address City/[facility] Co de Phone Number [facility] [place] [facility] [address] [address], [place] * ELECTROCARDIOGRAM (06/24/2024 11:28 AM MIX MAKER) 06/24/2024 11:2 8 AM MIX MAKER Narrative REJI RIVERA - 06/25/2024 8:08 AM MIX MAKER Reji Rivera [facility] Test Date: 2024-06-24 Pat Name: [facility] Department: 112 Room: Gender: Male Veneer Lathe Operator: [email or web address] : [id number] Requested By: MICHELINE CREWS Order Number: [id number] [place] MD: Micheline Crews Measurements Intervals [place] Rate: 66 P: 50 WV: 116 QRS: 15 QRSD: 87 T: 15 QT: 379 QTc: 400 Interpretive Statements SINUS RHYTHM WITH SHORT WV INTERVAL SEPTAL MYOCARDIAL INFARCTION, PROBABLY OLD Since prior tracing, no significant change MAKER Procedure Note Micheline Crews MD - 06/25/2024 Reji Rivera [facility] Test Date: 2024-06-24 Pat Name: [facility] Department: 112 Room: Gender: Male Veneer Lathe Operator: : 1950 Requested By: MICHELINE CREWS Order Number: [id number] [place] MD: Micheline Crews Measurements Intervals [place] Rate: 66 P: 50 WV: 116 QRS: 15 QRSD: 87 T: 15 QT: 379 QTc: 400 Interpretive Statements SINUS RHYTHM WITH SHORT [place]V INTERVAL SEPTAL MYOCARDIAL INFARCTION, PROBABLY OLD Since prior tracing, no significant change MAKER us Micheline Crews MD PROCEDURES-ORDERABLE NO CHARGE Final Result REJI RIVERA * HEPATITIS C ANTIBODY (12/17/2016 9:22 AM CDT) HEPATITIS C AB NON-REACT YADIEL NON-REACT YADIEL [facility] TO EPIC CONVERSION SIGNAL TO CUTOFF 0.02 <1.00 [facility] TO EPIC CONVERSION Comment: Result Comment: Test Performed at: [facility] [address] [place] [address] SOHEILA TORRES DO,MPH 12/17/2016 9:22 AM CDT 12/17/2016 9:22 AM CDT Narrative [facility] TO EPIC CONVERSION - 12/18/2016 7:25 AM CDT Result Communication: Call patient with results Chase Soler MD LABORATORY Final Result [facility] TO EPIC CONVERSION * COLONOSCOPY (05/15/2016) Documents Scanned SCANNING Final Result from Last 3 Months or Most Recently Relevant to Health Maintenance Insurance [facility] MEDICARE [facility] MEDICARE Care Teams Rental Sales Agent Relationship Specialty Start Date End Date Chase Soler MD [address] [place] [address] PCP - General 05/15/16 Micheline Crews MD [facility]. [address] [address] [place] [employer]er [employer] Boat CARDIOVASCULAR DISEASE 01/20/18 Isiah Martinez MD [facility]. [facility] [address] [place] [address] Surgeon HAND SURGERY 09/15/19 Cuco Smith MD [facility]. [facility] [address] [place] [address] UROLOGY 09/15/19
--- OUTSIDE RECORDS SUMMARY | 2024-09-20 21:14 | XMS_ITS | Encounter Summary ---
Author Organization [facility] Address [address] [place] [address] Care Team Providers Care Obstetrics/Gynecology Nurse Name Role Phone Chase Suarez MD Primary Care Provider [phone] Micheline Crews MD Unavailable [phone] Isiah Martinez MD Unavailable [phone] Cuco Smith MD Unavailable [phone] Encounter Details Date Type Department Care Team (Late st Contact Info) Description 02/06/2023 TwitChathart Message Enc [facility] - [facility] [address] [place], [place] [address] [place], [facility] Provider Air Quality Message Social History Tobacco Use Types Packs/Day Years Used Date Smoking Tobacco: Former Cigarettes 1 33 1 08/12/1982 - 06/12/2016 Smokeless Tobacco: Never Alcohol Use Standard Drinks/Week Comments Yes 10 (1 standard drink = 0.6 oz pure alcohol) 2 drinks a day of red wine or beer AUDIT-C Answer Date Recorded Frequency of Alcohol Consumption 4 or more times a week 05/08/2018 Average Number of Drinks 1 or 2 018 Frequency of Binge Drinking Never 04/13 PHQ-2 Answer Date Recorded Patient Health Questionnaire-2 Score 0 01/17/2023 Sex and Gender Information Value Date Recorded Sex Assigned at Male 07/01/2018 9:32 AM BOTTOM PRESSER Legal Sex Male 6:12 PM CDT Gender Identity Male 07/01/2018 9:32 AM BOTTOM PRESSER Sexual Orientation Straight 07/01/2018 9: 32 AM BOTTOM PRESSER Occupation Industry Job Start Date Job End Date social security/ disability program in [place] Not on file Not on file Not on file COVID-19 Exposure Response Date Recorded In the last 10 days, have yo u been in contact with someone who was confirmed or suspected to have Coronavirus/COVID-19? No / Unsure 01/17/2023 1:08 PM CDT documented as of this encounter Plan of Treatment Upcoming Encounters Date Type Department Care Team (Late st Contact Info) Description 02/16/2025 8:00 AM CDT Laboratory Only [facility] Family & Internal Medicine [address] [address] Chase Suarez MD [address] [place] [address] 02/23/2025 1:20 PM CDT Office Visit [facility] Family & Internal [address] [address] Chase Suarez MD [address] [place] [address] 06/24/2025 11:00 AM BOTTOM PRESSER Office Visit [facility] THREE [facility] [address] [place], [place] [phone] Fanny Day APRN [facility]. [address] [place], [place] [id number] documented as of this encounter Visit Diagnoses Not on filedocumented in this encounter Additional Health Concerns Assessment Noted Time PHQ-9 Depression Total Score: 0 07/31/20 21 10:14 AM BOTTOM PRESSER documented as of this encounter Care Teams Obstetrics/Gynecology Nurse Relationship Specialty Start Date End Date Chase Suarez MD [address] [place] [address] PCP - General 05/15/16 Micheline Crews MD [facility]. [address] [address] [place] Culinary Instructor CARDIOVASCULAR DISEASE 01/20/18 Isiah Martinez MD [facility]. [address] [address] Surgeon HAND SURGERY 09/15/19 Cuco Smith MD [facility]. [address] [address] UROLOGY 09/15/19 documented as of this encounter
--- OUTSIDE RECORDS SUMMARY | 2024-09-20 21:14 | XMS_ITS | Encounter Summary ---
Author Organization [facility] Address [address] [place] [address] Care Team Providers Care Anesthesia Attending Name Role Phone Chase Suarez MD Primary Care Provider [phone] Micheline Crews MD Unavailable [phone] Chase Suarez MD Unavailable [phone] Isiah Martinez MD Unavailable [phone] Cuco Smith MD Unavailable [phone] Encounter Details Date Type Department Care Team (Late st Contact Info) Description 02/04/2018 Abstract [facility] at [address] [address] Zari Cortez MA Social History Tobacco Use Types Packs/Day Years Used Date Smoking Tobacco: Former Cigarettes Q uit: 06/2016 Smokeless Tobacco: Never Alcohol Use Standard Drinks/Week Comments Yes 0 (1 standard drink = 0.6 oz pure alcohol) 2 drinks a day of red wine or beer Sex and Gender Information Value Date Recorded Sex Assigned at Male 07/01/2018 9:32 AM CIVIL LABORATORY TECHNICIAN Legal Sex Male 6:12 PM CDT Gender Identity Male 07/01/2018 9:32 AM CIVIL LABORATORY TECHNICIAN Sexual Orientation Straight 07/01/2018 9: 32 AM CIVIL LABORATORY TECHNICIAN Occupation Industry Job Start Date Job End Date social security/ disability program in [place] Not on file Not on file Not on file documented as of this encounter Plan of Treatment Upcoming Encounters Date Type Department Care Team (Late st Contact Info) Description 02/16/2025 8:00 AM CDT Laboratory Only [facility] Family & Internal Medicine [facility] [address] [place] [address] Chase Suarez MD [address] [place] [address] 02/23/2025 1:20 PM CDT Office Visit [facility] Family & Internal [facility] [address] [place] [address] Chase Suarez MD [address] [place] [address] 06/24/2025 11:00 AM CIVIL LABORATORY TECHNICIAN Office Visit [facility] [address] [place], [place] [phone] Fanny Day APRN [address] [facility]. [address] [place], [place] [phone] documented as of this encounter Procedures Procedure Name Priority Date/Time Associated Diagnosis Comments LIPID PANEL Routine 11/24/2018 CBC (OUTSIDE LAB) Routine 12/26/2017 COMPREHENSIVE METABOLIC PANEL Routine 12/26/2017 COMPREHENSIVE METABOLIC PANEL Routine 12/26/2017 LIPID PANEL Routine 12/26/2017 THYROID STIM HORMONE TSH Routine 12/26/2017 URIC ACID BLOOD Routine 12/26/2017 documented in this encounter Results * LIPID PANEL (11/24/2018) CHOLESTEROL 156 HDL 48 TRIGLYCERIDES 98 NON HDL CHOLESTEROL 108 LDL (CALCULATED) 89 11/24/2018 us Doc [facility] Abstract LABORATORY Final Result * COMPREHENSIVE METABOLIC PANEL (12/26/2017) SODIUM S/P/B 141 POTASSIUM S/P/B 4.2 CO2 25 CHLORIDE S/P/B 107 GLUCOSE 103 mg/dL CALCIUM S/P/B 9.3 BUN 20 CREATININE S/P/B 1.13 0.7 - 1.3 EGFR AFR. AMER. 77 EGFR NON-AFR. AMER. 66 <=90 ALKALINE PHOSPHATASE S/P/B 49 ALT 20 AST 21 BILIRUBIN TOTAL S/P/B 1.1 ALBUMIN S/P/B 4.5 3.5 - 5.0 TOTAL PROTEIN S/P/B 6.6 GLOBULIN 2.1 12/26/2017 us Doc [facility] Abstract LABORATORY Final Result * COMPREHENSIVE METABOLIC PANEL (12/26/2017) SODIUM S/P/B 141 POTASSIUM S/P/B 4.2 CO2 25 CHLORIDE S/P/B 107 GLUCOSE 103 mg/dL CALCIUM S/P/B 9.3 BUN 20 CREATININE S/P/B 1.13 0.7 - 1.3 EGFR AFR. AMER. 77 EGFR NON-AFR. AMER. 66 <=90 ALKALINE PHOSPHATASE S/P/B 49 ALT 20 AST 21 BILIRUBIN TOTAL S/P/B 1.1 ALBUMIN S/P/B 4.5 3.5 - 5.0 TOTAL PROTEIN S/P/B 6.6 GLOBULIN 2.1 12/26/2017 us Doc [facility] Abstract LABORATORY Final Result * CBC (OUTSIDE LAB) (12/26/2017) WBC 4.5 HGB 15.9 HCT 47.4 PLT 219 12/26/2017 us Doc [facility] Abstract LAB-OUTSIDE/ABSTRACTED Final Result * URIC ACID BLOOD (12/26/2017) URIC ACID 6.3 12/26/2017 us Doc [facility] LABORATORY Final Result * THYROID STIM HORMONE, TSH (12/26/2017) TSH 1.85 12/26/2017 us Doc [facility] Abstract LABORATORY Final Result * LIPID PANEL (12/26/2017) CHOLESTEROL 173 HDL 47 TRIGLYCERIDES 89 NON HDL CHOLESTEROL 126 LDL (CALCULATED) 108 12/26/2017 us Doc [facility] Abstract LABORATORY Final Result documented in this encounter Visit Diagnoses Not on filedocumented in this encounter Care Teams Anesthesia Attending Relationship Specialty Start Date End Date Chase Suarez MD [address] [place] [address] PCP - General 05/15/16 Chase Suarez MD [address] [place] [address] PCP - Med Group - [facility] Attributed Provider 08/12/15 08/11/21 Micheline Crews MD Three [facility]. [address] [place] [address] [place] [employer] Booker CARDIOVASCULAR DISEASE 01/20/18 Isiah Martinez MD [address] [place] [address] Surgeon HAND SURGERY 09/15/19 Cuco Smith MD [address] [place] [address] UROLOGY 09/15/19 documented as of this encounter
--- OUTSIDE RECORDS SUMMARY | 2024-09-20 21:14 | XMS_ITS | Encounter Summary ---
Author Organization [facility] Address [address] [place] [address] Care Team Providers Care Block Out Machine Operator Name Role Phone Chase Suarez MD Primary Care Provider [phone] Micheline Crews MD Unavailable [phone] Chase Suarez MD Unavailable [phone] Isiah Martinez MD Unavailable [phone] Cuco Smith MD Unavailable [phone] Encounter Details Date Type Department Care Team (Latest Contact Info) Description 09/16/2019 MyCCovermate Productst Message Enc [facility] Medical Group [facility]pec[facility] - [facility] [address] [facility], [address] [place] [address] Isiah Martinez MD [address] [place] [address] RE: Follow Up/Update Social History Tobacco Use Types Packs/Day Years Used Date Smoking Tobacco: Former Cigarettes 1 33 1 08/1982 - 06/2016 Smokeless Tobacco: Never Alcohol Use Standard Drinks/Week Comments Yes 0 (1 standard drink = 0.6 oz pure alcohol) 2 drinks a day of red wine or beer AUDIT-C Answer Date Recorded Frequency of Alcohol Consumption 4 or more times a week 05/08/2018 Average Number of Drinks 1 or 2 018 Frequency of Binge Drinking Never 04/13 PHQ-2 Answer Date Recorded PHQ-2 Score 0 07/20/2019 Sex and Gender Information Value Date Recorded Sex Assigned at Male 07/01/2018 9:32 AM GEOLOGICAL SPECIALIST Legal Sex Male 6:12 PM CDT Gender Identity Male 07/01/2018 9:32 AM GEOLOGICAL SPECIALIST Sexual Orientation Straight 07/01/2018 9: 32 AM GEOLOGICAL SPECIALIST Occupation Industry Job Start Date Job End Date social security/ disability program in [place] Not on file Not on file Not on file documented as of this encounter Plan of Treatment Upcoming Encounters Date Type Department Care Team (Late st Contact Info) Description 02/16/2025 8:00 AM CDT Laboratory Only [facility] Medical [facility] Family & Internal Medicine [address] [address] Chase Suarez MD [address] [place] [address] 02/23/2025 1:20 PM CDT Office Visit [facility] Family & Internal [place] [address] [place] [address] Chase Suarez MD [address] [place] [address] 06/24/2025 11:00 AM GEOLOGICAL SPECIALIST Office Visit [facility] THREE [facility], [address] [place], [place] [address] Fanny Day APRN Three [facility]. [address] [place], [place] [address] documented as of this encounter Visit Diagnoses Not on filedocumented in this encounter Care Teams Block Out Machine Operator Relationship Specialty Start Date End Date Chase Suarez MD [address] [place] [address] PCP - General 05/15/16 Chase Suarez MD [address] [place] [address] PCP - Med Group - [facility] Attributed Provider 08/12/15 08/11/21 Micheline Crews MD [facility] [address] [place] [address] Ace Specialty Molder CARDIOVASCULAR DISEASE 01/20/18 Isiah Martinez MD [address] [place] [address] Surgeon HAND SURGERY 09/15/19 Cuco Smith MD [address] [place] [address] UROLOGY 09/15/19 documented as of this encounter
--- OUTSIDE RECORDS SUMMARY | 2024-09-20 21:14 | XMS_ITS | Encounter Summary ---
Author Organization [facility] Address [facility] [place] [address] Care Team Providers Care Water Fabricator Operator Name Role Phone Chase Suarez MD Primary Care Provider [phone] Micheline Crews MD Unavailable [phone] Chase Suarez MD Unavailable [phone] Isiah Martinez MD Unavailable [phone] Cuco Smith MD Unavailable [phone] Encounter Details Date Type Department Care Team (Late st Contact Info) Description 09/16/2019 MyChart Message Enc [facility] Medical Group Family & Internal Medicine [facility] [address] [place] [address] Chase Suarez MD [address] [place] [address] Medication Questions Social History Tobacco Use Types Packs/Day Years [...] Sex Assigned at Male 07/01/2018 9:32 AM TAFFY PULLER Legal Sex Male 6:12 PM CDT Gender Identity Male 07/01/2018 9:32 AM TAFFY PULLER Sexual Orientation Straight 07/01/2018 9: 32 AM TAFFY PULLER Occupation Industry Job Start Date Job End Date social security/ disability program in [place] Not on file Not on file Not on file documented as of this encounter Plan of Treatment Upcoming Encounters Date Type Department Care Team (Late st Contact Info) Description 02/16/2025 8:00 AM CDT Laboratory Only [facility] Family & Internal Medicine [address] [address] Chase Suarez MD [address] [place] [address] 02/23/2025 1:20 PM CDT Office Visit [facility] Family & Internal [address] [address] Chase Suarez MD [address] [place] [address] 06/24/2025 11:00 AM TAFFY PULLER Office Visit [facility] THREE [facility] [address] [place], [place] [phone] Fanny Day APRN [facility]. [address] [place], [place] [phone] documented as of this encounter Visit Diagnoses Not on filedocumented in this encounter Care Teams Water Fabricator Operator Relationship Specialty Start Date End Date Chase Suarez MD [address] [place] [address] PCP - General 05/15/16 [place] [address] [place] [address] PCP - Med Group - [facility] Attributed Provider 08/12/15 08/11/21 Micheline Crews MD [facility]. [facility] [address] [place] [address] [place] Division Leader CARDIOVASCULAR DISEASE 01/20/18 Isiah Martinez MD [address] [place] [address] Surgeon HAND SURGERY 09/15/19 Cuco Smith MD [address] [place] [address] UROLOGY 09/15/19 documented as of this encounter
[2024-09-20 22:09] LABS: D Dimer < 0.27 ug/mL (<0.48)
[2024-09-20] MEDS: IPRATROPIUM 0.5 MG/ALBUTEROL SULFATE 2.5 MG AMPUL.NEB 3 ML INHALATION (22:29)
--- NOTE | 2024-09-20 23:20 | PC.NURSE ---
Patient placed back on 2L via NC for RA sat of 89%. PA notified and now speaking with patient.
[2024-09-21] VITALS (31 sets, daily range): BP systolic 107–152; BP diastolic 60–88; PULSE 55–78; RESP 14–20; TEMP 36.3–36.9; O2SAT 92–99; BMI 27.6
--- NOTE | 2024-09-21 01:37 | PM.IMHP ---
H&P: HPI History of Present Illness Date/Time: 09/21/24 01:37 Chief Complaint: Syncope x2 Narrative: A 73-year-old male with past medical history vasovagal syncope, hyperlipidemia, chronic hypertension, prior tobacco abuse, presents with syncope x2. He is accompanied by his . On 09/20/2024 the patient was in his usual state of health when he was sitting eating dinner and he had an episode of syncope. Was out for a minute or so and wants his was done calling EMS the patient regained consciousness. No postictal state, just nauseous. No witnessed seizure activity. No blood trauma observed by the . EMS arrived and the patient was wanting to refused to be transported to the ER but during that he had another episode of syncope. Patient otherwise reports a dry cough for about a week. He feels that he has been staying well hydrated recently. His appraisal specialist has done an extensive workup - Dr. Foote at [place]. ER evaluation demonstrated a pleasant male with stable vital signs. No further episodes of syncope. Blood pressure 108/74. Hemoglobin 13.5. No leukocytosis. No acute kidney injury. COVID-19 PCR positive. Chest x-ray no acute abnormalities. EKG normal sinus rhythm. Orthostatic blood pressure negative. O2 saturation dropping to 89% while the ER. Placed on 2.5-[address] head reported negative. Review of Systems Review of Systems: All systems reviewed & are unremarkable except as noted in HPI and below (HPI) Meds Home Medications and Allergies Home Medications ?Medication ?Instructions ?Recorded ?Confirmed ?Type amlodipine 2.5 mg tablet (Norvasc) 2.5 mg PO DAILY 09/20/24 09/20/24 History aspirin 81 mg tablet,delayed 81 mg PO DAILY 09/20/24 09/20/24 History release (Adult Aspirin Regimen) atorvastatin 20 mg tablet (Lipitor) 20 mg PO DAILY 09/20/24 09/20/24 History docusate sodium 100 mg capsule 100 mg PO DAILY 09/20/24 09/20/24 History (Colace) multivitamin (Daily Multi-Vitamin 1 tablet PO DAILY 09/20/24 09/20/24 History tablet) sertraline 100 mg tablet 100 mg PO DAILY 09/20/24 09/20/24 History Allergies Allergy/AdvReac Type Severity Reaction Status Date / Time No Known Allergies Allergy Verified 09/20/24 19:40 Vital Signs Vital Signs - 24 hr 09/20/24 19:24 09/20/24 19:38 09/20/24 19:45 Temperature 98.1 F Pulse Rate 67 72 71 Respiratory Rate 14 16 16 Blood Pressure 108/74 Pulse Oximetry 95 95 95 Oxygen Delivery Room Air Oxygen Flow Rate 09/20/24 20:00 09/20/24 20:01 09/20/24 20:15 Temperature Pulse Rate 75 82 72 Respiratory Rate 15 17 18 Blood Pressure 114/66 Pulse Oximetry 92 95 91 Oxygen Delivery Oxygen Flow Rate 09/20/24 20:30 09/20/24 20:31 09/20/24 20:43 Temperature Pulse Rate 77 79 71 Respiratory Rate 17 20 Blood Pressure 107/71 107/73 Pulse Oximetry 94 97 Oxygen Delivery Oxygen Flow Rate 09/20/24 20:44 09/20/24 20:44 09/20/24 20:45 Temperature Pulse Rate 74 76 82 Respiratory Rate 18 Blood Pressure 106/72 107/73 120/70 Pulse Oximetry Oxygen Delivery Oxygen Flow Rate 09/20/24 20:45 09/20/24 20:46 09/20/24 20:47 Temperature Pulse Rate 81 81 Respiratory Rate 13 13 18 Blood Pressure 106/72 120/70 Pulse Oximetry 91 92 94 Oxygen Delivery Oxygen Flow Rate 09/20/24 21:00 09/20/24 21:01 09/20/24 21:11 Temperature Pulse Rate 72 73 Respiratory Rate 12 19 Blood Pressure 117/76 Pulse Oximetry 91 96 Oxygen Delivery Nasal Cannula Oxygen Flow Rate 2 09/20/24 21:15 09/20/24 21:30 09/20/24 21:31 Temperature Pulse Rate 76 74 74 Respiratory Rate 19 14 21 H Blood Pressure 126/73 Pulse Oximetry 97 95 96 Oxygen Delivery Oxygen Flow Rate 09/20/24 21:45 09/20/24 22:00 09/20/24 22:15 Temperature Pulse Rate 75 69 76 Respiratory Rate 21 H 17 19 Blood Pressure Pulse Oximetry 95 97 96 Oxygen Delivery Oxygen Flow Rate 09/20/24 22:29 09/20/24 22:30 09/20/24 22:44 Temperature Pulse Rate 72 74 74 Respiratory Rate 18 19 16 Blood Pressure Pulse Oximetry 95 Oxygen Delivery Oxygen Flow Rate 09/20/24 22:44 09/20/24 22:45 09/20/24 22:56 Temperature Pulse Rate 79 78 Respiratory Rate 18 14 Blood Pressure 106/73 Pulse Oximetry 94 95 94 Oxygen Delivery Room Air Oxygen Flow Rate 09/20/24 23:00 09/20/24 23:01 09/20/24 23:15 Temperature Pulse Rate 75 81 81 Respiratory Rate 16 17 18 Blood Pressure 116/70 Pulse Oximetry 91 94 91 Oxygen Delivery Oxygen Flow Rate 09/20/24 23:30 09/20/24 23:31 09/20/24 23:45 Temperature Pulse Rate 78 78 Respiratory Rate 18 17 Blood Pressure 110/71 Pulse Oximetry 95 96 96 Oxygen Delivery Oxygen Flow Rate 09/21/24 00:00 09/21/24 00:01 09/21/24 00:32 Temperature Pulse Rate Respiratory Rate Blood Pressure 107/63 Pulse Oximetry 97 95 98 Oxygen Delivery Oxygen Flow Rate 09/21/24 00:45 09/21/24 01:00 09/21/24 01:15 Temperature Pulse Rate Respiratory Rate Blood Pressure Pulse Oximetry 98 97 97 Oxygen Delivery Oxygen Flow Rate 09/21/24 01:30 Temperature Pulse Rate Respiratory Rate Blood Pressure Pulse Oximetry 97 Oxygen Delivery Oxygen Flow Rate Exam Const: General: comfortable and no acute distress Other: A&O x3 Eyes: Pupils: Equal, round and reactive pupils present Neck: Neck: supple Resp: Effort & Inspection: normal respiratory effort Auscultation: clear to auscultation bilaterally Cardio: Rate: regular rate Rhythm: regular rhythm GI: GI Palp: Yes Soft to palpation and No Tenderness to palpation present (GI) Neuro: Motor exam (neuro): 5/5 motor strength present throughout Extrem: General: no edema H&P: Results Labs Labs: Short CBC 09/20/24 Range/Units 19:58 WBC 6.8 (4.5-10.0) K/mm3 Hgb 13.5 L (14.0-18.0) g/dL Hct 40.3 L (42.0-52.0) % Plt Count 147 L (150-375) k/mm3 BMP 09/20/24 19:58 Sodium 136 L Potassium 3.9 Chloride 101 Carbon Dioxide 22 BUN 20 Creatinine 1.10 Glucose 121 H Calcium 8.2 L Cardiac Enzymes 09/20/24 Range/Units 19:58 Troponin I < 0.012 (0.000-0.034) ng/mL Liver Function 09/20/24 Range/Units 19:58 Total Bilirubin 0.9 (0.2-1.3) mg/dL AST 31 (17-59) U/L ALT 26 (6-50) U/L Alkaline Phosphatase 48 (38-126) U/L Albumin 3.9 (3.5-5.1) g/dL Assessment and Plan Assessment and plan (1) COVID-19: Code(s): U07.1 - COVID-19 Status: Acute (2) Acute hypoxic respiratory failure: Code(s): J96.01 - Acute respiratory failure with hypoxia Status: Acute (3) Syncope: Qualifiers: Syncope type: unspecified Qualified Code(s): R55 - Syncope and collapse Code(s): R55 - Syncope and collapse Status: Acute Plan A 73-year-old male with past medical history vasovagal syncope, hyperlipidemia, chronic hypertension, prior tobacco abuse, presents with syncope x2. He is accompanied by his . On 09/20/2024 the patient was in his usual state of health when he was sitting eating dinner and he had an episode of syncope. Was out for a minute or so and wants his was done calling EMS the patient regained consciousness. No postictal state, just nauseous. No witnessed seizure activity. No blood trauma observed by the . EMS arrived and the patient was wanting to refused to be transported to the ER but during that he had another episode of syncope. Patient otherwise reports a dry cough for about a week. He feels that he has been staying well hydrated recently. His appraisal specialist has done an extensive workup - Dr. Foote at [place]. ER evaluation demonstrated a pleasant male with stable vital signs. No further episodes of syncope. Blood pressure 108/74. Hemoglobin 13.5. No leukocytosis. No acute kidney injury. COVID-19 PCR positive. Chest x-ray no acute abnormalities. EKG normal sinus rhythm. Orthostatic blood pressure negative. O2 saturation dropping to 89% while the ER. Placed on 2.5-[address] head reported negative. ----- Start Decadron 6 mg p.o. q.day, remdesivir for 5 day course. Adjust with the patient in the risks versus benefits in the was to proceed. No transaminitis or acute kidney injury at this time. Continue to trend out. Continue oxygen protocol he is currently breathing comfortably on 2 L. Wean as tolerated. Fall precautions. Holding SPEECH PATHOLOGIST amlodipine all other medications restarted as appropriate. Full code. Telemetry. Hospitalist [facility] Advance Care Plan I have confirmed that the patient's Advanced Care Plan is present, code status is documented, or surrogate decision maker is listed in patient medical record.: Yes Medication Reconciliation I have utilized all available resources to obtain, update and review the patients current medications (includes all prescriptions, OTC, herbals, cannabis, and nutritional supplements).: Yes
[2024-09-21] MEDS: dexAMETHasone 2 MG TABLET 6 MG PO ×2 (02:39→09:44)
[2024-09-21] MEDS: REMDESIVIR 200 MG/NS 250 ML 200 MG/250 ML BAG 250 MG IVPB (02:40)
--- NOTE | 2024-09-21 04:35 | ADMGEN ---
This patient, Deangelo Hillman, was admitted to Medical Room 245-. Patient/family oriented to hospital policies and general routines including ID bracelet, bed and alarms, visiting hours, pain management, procedures, bathroom and other care routines, personal items, smoking policy, room service/diet, and visiting hours. Information on how to activate the Rapid Response Team has been discussed. Patient/Family are encouraged to report perceived risks to care and to ask questions if they do not understand what they are told or what they should do.
[2024-09-21 06:25] LABS: Basophils Percent Auto 0.2 % (0.2-1.2); Hematocrit 39.6 % (42.0-52.0); Hemoglobin 13.3 g/dL (14.0-18.0); Immature Granulocyte Absolute 0.01 K/mm3 (0.00-0.031); Immature Granulocyte Percent A 0.2 % (0-0.5); Lymphocytes Absolute Auto 0.62 K/mm3 (0.9-3.2); Lymphocytes Percent Auto 12.1 % (18.3-44.2); Mean Corpuscular HGB Conc 33.6 g/dl (32-36); Mean Corpuscular Hemoglobin 30.6 pg (26-34); Mean Corpuscular Volume 91.2 fl (80-100); Monocytes Absolute Auto 0.4 K/mm3 (0.1-0.6); Monocytes Percent Auto 7.4 % (2.6-8.5); Neutrophils Absolute Auto 4.1 K/mm3 (1.3-6.7); Neutrophils Percent Auto 80.1 % (45.5-73.1); Platelet Count Result 143 k/mm3 (150-375); Red Blood Count 4.34 M/mm3 (4.6-6.20); Red Cell Distribution Width 12.8 % (11.5-14.5); White Blood Count 5.1 K/mm3 (4.5-10.0)
[2024-09-21 06:40] LABS: Anion Gap 12 mmol/L (4-12); Blood Urea Nitrogen 19 mg/dL (9-20); Calcium 8.4 mg/dL (8.4-10.2); Carbon Dioxide 24 mmol/L (22-30); Chloride 103 mmol/L (98-107); Estimated CRCL calculation 60 ml/min; Estimated Glomerular Filt Rate > 60; Glucose 122 mg/dL (65-110); Magnesium 2.1 mg/dL (1.6-2.3); Potassium 4.4 mmol/L (3.4-5.0); Sodium 139 mmol/L (137-145)
--- NOTE | 2024-09-21 07:11 | PM.IMPN ---
Progress Note: A&P Assessment and Plan (1) COVID-19: Code(s): U07.1 - COVID-19 Status: Acute (2) Acute hypoxic respiratory failure: Code(s): J96.01 - Acute respiratory failure with hypoxia Status: Acute Assessment and Plan: 09/21: - Stable oxygenation on 2L per nasal cannula. - Today is day 1 of remdesivir (at 0135) and dose 2 of dexamethasone. - Start tx dose lovenox today. - Cont. to trend renal/hepatic function on current therapy. (3) Syncope: Qualifiers: Syncope type: unspecified Qualified Code(s): R55 - Syncope and collapse Code(s): R55 - Syncope and collapse Status: Acute Assessment and Plan: 09/21: - Reported hx of similar has followed with cardiology in the past - thought to be vasovagal (compounded by dehydration) historically. - Likely syncopal prior to arrival 2/2 to acute viral illness vs hypoxia. No findings of dehydration, etc. - Check orthostatic bp and if no acute findings plan for up to chair, ok to ambulate. Plan A 73-year-old male with past medical history vasovagal syncope, hyperlipidemia, chronic hypertension, prior tobacco abuse, presented with syncope x 2 - found to have acute hypoxic resp. failure secondary to covid. Tomorrow will be day 2 of remdesivir. Stable oxygenation. Time Spent With Patient Time with patient: 25 - 35 minutes Subjective Date/time seen: 09/21/24 07:11 Interval history: Deangelo states he feels his breathing is stable. He has a fair appetite. Review of Systems Review of Systems: All systems reviewed & are unremarkable except as noted in HPI and below Exam Narrative: GENERAL APPEARANCE: Appears to be in no acute distress. HEAD: normocephalic atraumatic EYES: PERRL, EOMI. Vision grossly intact. ENT: Hearing grossly intact, no nasal discharge NECK: Neck supple, trachea midline. CARDIAC: Normal S1/S2. Rhythm is regular. No murmurs, rubs, or gallops. No cyanosis or pallor. Extremities are warm and well perfused. LUNGS: Clear to auscultation without rales, rhonchi, wheezing or diminished breath sounds. Respirations even and unlabored. ABDOMEN: BS positive x 4 quadrants. Soft, nondistended, nontender. No guarding or rebound. MSK: No joint tenderness/swelling, fair strength in all extremities. PERIPHERAL VASCULAR: Peripheral pulses palpable. Normal perfusion, cap refill <2 seconds. No edema. NEURO: Follows commands. No focal deficits. SKIN: [place] without lesions or eruptions. PSYCH: Stable, no paranoia or delusional thinking. Objective Data Vital Signs Vital Signs: Vital Signs - 24 hr 09/20/24 19:24 09/20/24 19:38 09/20/24 19:45 Temperature 98.1 F Pulse Rate 67 72 71 Respiratory Rate 14 16 16 Blood Pressure 108/74 Pulse Oximetry 95 95 95 Oxygen Delivery Room Air Oxygen Flow Rate 09/20/24 20:00 09/20/24 20:01 09/20/24 20:15 Temperature Pulse Rate 75 82 72 Respiratory Rate 15 17 18 Blood Pressure 114/66 Pulse Oximetry 92 95 91 Oxygen Delivery Oxygen Flow Rate 09/20/24 20:30 09/20/24 20:31 09/20/24 20:43 Temperature Pulse Rate 77 79 71 Respiratory Rate 17 20 Blood Pressure 107/71 107/73 Pulse Oximetry 94 97 Oxygen Delivery Oxygen Flow Rate 09/20/24 20:44 09/20/24 20:44 09/20/24 20:45 Temperature Pulse Rate 74 76 82 Respiratory Rate 18 Blood Pressure 106/72 107/73 120/70 Pulse Oximetry Oxygen Delivery Oxygen Flow Rate 09/20/24 20:45 09/20/24 20:46 09/20/24 20:47 Temperature Pulse Rate 81 81 Respiratory Rate 13 13 18 Blood Pressure 106/72 120/70 Pulse Oximetry 91 92 94 Oxygen Delivery Oxygen Flow Rate 09/20/24 21:00 09/20/24 21:01 09/20/24 21:11 Temperature Pulse Rate 72 73 Respiratory Rate 12 19 Blood Pressure 117/76 Pulse Oximetry 91 96 Oxygen Delivery Nasal Cannula Oxygen Flow Rate 2 09/20/24 21:15 09/20/24 21:30 09/20/24 21:31 Temperature Pulse Rate 76 74 74 Respiratory Rate 19 14 21 H Blood Pressure 126/73 Pulse Oximetry 97 95 96 Oxygen Delivery Oxygen Flow Rate 09/20/24 21:45 09/20/24 22:00 09/20/24 22:15 Temperature Pulse Rate 75 69 76 Respiratory Rate 21 H 17 19 Blood Pressure Pulse Oximetry 95 97 96 Oxygen Delivery Oxygen Flow Rate 09/20/24 22:29 09/20/24 22:30 09/20/24 22:44 Temperature Pulse Rate 72 74 74 Respiratory Rate 18 19 16 Blood Pressure Pulse Oximetry 95 Oxygen Delivery Oxygen Flow Rate 09/20/24 22:44 09/20/24 22:45 09/20/24 22:56 Temperature Pulse Rate 79 78 Respiratory Rate 18 14 Blood Pressure 106/73 Pulse Oximetry 94 95 94 Oxygen Delivery Room Air Oxygen Flow Rate 09/20/24 23:00 09/20/24 23:01 09/20/24 23:15 Temperature Pulse Rate 75 81 81 Respiratory Rate 16 17 18 Blood Pressure 116/70 Pulse Oximetry 91 94 91 Oxygen Delivery Oxygen Flow Rate 09/20/24 23:30 09/20/24 23:31 09/20/24 23:45 Temperature Pulse Rate 78 78 Respiratory Rate 18 17 Blood Pressure 110/71 Pulse Oximetry 95 96 96 Oxygen Delivery Oxygen Flow Rate 09/21/24 00:00 09/21/24 00:01 09/21/24 00:32 Temperature Pulse Rate Respiratory Rate Blood Pressure 107/63 Pulse Oximetry 97 95 98 Oxygen Delivery Oxygen Flow Rate 09/21/24 00:45 09/21/24 01:00 09/21/24 01:15 Temperature Pulse Rate Respiratory Rate Blood Pressure Pulse Oximetry 98 97 97 Oxygen Delivery Oxygen Flow Rate 09/21/24 01:30 09/21/24 01:45 09/21/24 02:00 Temperature Pulse Rate Respiratory Rate Blood Pressure Pulse Oximetry 97 97 95 Oxygen Delivery Oxygen Flow Rate 09/21/24 02:15 09/21/24 02:30 09/21/24 02:44 Temperature Pulse Rate 66 Respiratory Rate 14 Blood Pressure 130/84 Pulse Oximetry 92 94 93 Oxygen Delivery Oxygen Flow Rate 09/21/24 02:45 09/21/24 02:48 09/21/24 03:00 Temperature 98.3 F Pulse Rate 68 63 66 Respiratory Rate 18 16 14 Blood Pressure 130/84 Pulse Oximetry 94 93 93 Oxygen Delivery Oxygen Flow Rate 09/21/24 03:15 09/21/24 03:30 09/21/24 03:45 Temperature Pulse Rate 72 68 68 Respiratory Rate 16 16 17 Blood Pressure Pulse Oximetry 93 93 93 Oxygen Delivery Oxygen Flow Rate 09/21/24 04:00 09/21/24 04:01 09/21/24 04:06 Temperature 98.4 F Pulse Rate 64 70 65 Respiratory Rate 14 17 17 Blood Pressure 108/75 117/60 Pulse Oximetry 93 92 99 Oxygen Delivery Oxygen Flow Rate 09/21/24 04:36 09/21/24 04:40 Temperature Pulse Rate 63 70 Respiratory Rate 17 Blood Pressure Pulse Oximetry 92 Oxygen Delivery Nasal Cannula Oxygen Flow Rate 2 Intake/Output Intake/Output: Intake & Output 09/18/24 09/19/24 09/20/24 09/21/24 23:59 23:59 23:59 23:59 Intake Total 400 Output Total 900 Balance -500 Meds/Results Medications: Active Medications Generic Name Dose Route Start Last Admin Trade Name Freq PRN Reason Stop Dose Admin Aspirin 81 mg 09/21/24 09:00 Aspirin 81 Mg Enteric Tablet PO DAILY [facility] Atorvastatin Calcium 20 mg 09/21/24 09:00 Atorvastatin 20 Mg Tablet PO DAILY [facility] Dexamethasone 6 mg 09/21/24 01:35 09/21/24 02:39 Dexamethasone 2 Mg Tablet PO 09/30/24 08:01 6 mg DAILY@0800 [facility] Administration Docusate Sodium 100 mg 09/21/24 09:00 Docusate Sodium 100 Mg Capsule PO DAILY [facility] Remdesivir 100 mg in 250 mls @ 250 mls/hr 09/22/24 10:00 IVPB 09/25/24 10:59 Q24H [facility] Multivitamins Therapeutic 1 tablet 09/21/24 09:00 Multivitamins Therapeutic Tab (*Bkc) PO DAILY [facility] Sertraline HCl 100 mg 09/21/24 09:00 Sertraline Hcl 50 Mg Tablet PO DAILY [facility] Radiology Results: ITS Impressions Chest X-Ray 09/20/24 20:05 IMPRESSION: No focal infiltrate or effusion. Head CT 09/21/24 06:06 Impression: 1 cm hyperdense lesion which appears to be at the roof of the third ventricle, suggestive of colloid cyst. Focal hemorrhage is a potential alternative consideration. Labs Labs: Laboratory Results - last 24 hr 09/20/24 09/20/24 09/20/24 19:58 19:58 21:50 WBC 6.8 RBC 4.42 L Hgb 13.5 L Hct 40.3 L MCV 91.2 MCH 30.5 MCHC 33.5 RDW 13.1 Plt Count 147 L MPV 10.0 Immature Gran % (Auto) 0.1 Neut % (Auto) 75.5 H Lymph % (Auto) 14.2 L [place] % (Auto) 9.7 H Eos % (Auto) 0.1 Baso % (Auto) 0.4 Lymph # (Auto) 0.97 [place] # (Auto) 0.7 H Eos # (Auto) 0.0 Baso # (Auto) 0.0 Abs Immat Gran (auto) 0.01 Absolute Neuts (auto) 5.1 Absolute Nucleated RBC 0.000 Nucleated RBC % 0.0 D-Dimer < 0.27 Sodium 136 L Potassium 3.9 Chloride 101 Carbon Dioxide 22 Anion Gap 13 H BUN 20 Creatinine 1.10 Estim Creat Clear Calc 54 Estimated GFR > 60 Glucose 121 H Calcium 8.2 L Magnesium 1.9 Cancelled Total Bilirubin 0.9 AST 31 ALT 26 Alkaline Phosphatase 48 Troponin I < 0.012 NT-Pro-B Natriuret Pep 91 Total Protein 6.0 L Albumin 3.9 Influenza A (RT-PCR) Negative Influenza B (RT-PCR) Negative RSV (RT-PCR) Negative SARS-CoV-2 RNA (RT-PCR) Positive A 09/21/24 05:58 WBC 5.1 RBC 4.34 L Hgb 13.3 L Hct 39.6 L MCV 91.2 MCH 30.6 MCHC 33.6 RDW 12.8 Plt Count 143 L MPV 10.0 Immature Gran % (Auto) 0.2 Neut % (Auto) 80.1 H Lymph % (Auto) 12.1 L [place] % (Auto) 7.4 Eos % (Auto) 0.0 Baso % (Auto) 0.2 Lymph # (Auto) 0.62 L [place] # (Auto) 0.4 Eos # (Auto) 0.0 Baso # (Auto) 0.0 Abs Immat Gran (auto) 0.01 Absolute Neuts (auto) 4.1 Absolute Nucleated RBC 0.000 Nucleated RBC % 0.0 D-Dimer Sodium 139 Potassium 4.4 Chloride 103 Carbon Dioxide 24 Anion Gap 12 BUN 19 Creatinine 0.98 Estim Creat Clear Calc 60 Estimated GFR > 60 Glucose 122 H Calcium 8.4 Magnesium 2.1 Total Bilirubin AST ALT Alkaline Phosphatase Troponin I NT-Pro-B Natriuret Pep Total Protein Albumin Influenza A (RT-PCR) Influenza B (RT-PCR) RSV (RT-PCR) SARS-CoV-2 RNA (RT-PCR) Quality VTE Prophylaxis VTE prophylaxis: pharmacologic ordered Hospitalist [facility] Advance Care Plan I have confirmed that the patient's Advanced Care Plan is present, code status is documented, or surrogate decision maker is listed in patient medical record.: Yes Medication Reconciliation I have utilized all available resources to obtain, update and review the patients current medications (includes all prescriptions, OTC, herbals, cannabis, and nutritional supplements).: Yes
[2024-09-21] MEDS: ASPIRIN 81 MG ENTERIC TABLET PO (09:43)
[2024-09-21] MEDS: DOCUSATE SODIUM 100 MG CAPSULE PO (09:43)
[2024-09-21] MEDS: ATORVASTATIN 20 MG TABLET PO (09:43)
[2024-09-21] MEDS: SERTRALINE HCL 50 MG TABLET 100 MG PO (09:44)
[2024-09-21] MEDS: MULTIVITAMINS THERAPEUTIC TAB (*BKC) 1 TABLET PO (09:44)
[2024-09-21] MEDS: ENOXAPARIN 100 MG/ML SYRINGE 90 MG SUB-Q ×2 (09:46→20:02)
[2024-09-22] VITALS (10 sets, daily range): BP systolic 116–122; BP diastolic 74–84; PULSE 52–67; RESP 19–20; TEMP 36.5–36.7; O2SAT 94–98
[2024-09-22 06:07] LABS: Hematocrit 41.9 % (42.0-52.0); Hemoglobin 14.2 g/dL (14.0-18.0); Mean Corpuscular HGB Conc 33.9 g/dl (32-36); Mean Corpuscular Hemoglobin 30.4 pg (26-34); Mean Corpuscular Volume 89.7 fl (80-100); Mean Platelet Volume 9.9 fl (7.4-10.4); Platelet Count Result 164 k/mm3 (150-375); Red Blood Count 4.67 M/mm3 (4.6-6.20); Red Cell Distribution Width 12.6 % (11.5-14.5); White Blood Count 5.6 K/mm3 (4.5-10.0)
[2024-09-22 06:25] LABS: Alanine Aminotransferase 26 U/L (6-50); Albumin Level 3.6 g/dL (3.5-5.1); Alkaline Phosphatase 48 U/L (38-126); Anion Gap 11 mmol/L (4-12); Aspartate Amino Transferase 32 U/L (17-59); Bilirubin,Total 0.7 mg/dL (0.2-1.3); Blood Urea Nitrogen 22 mg/dL (9-20); Calcium 8.6 mg/dL (8.4-10.2); Carbon Dioxide 24 mmol/L (22-30); Chloride 102 mmol/L (98-107); Estimated CRCL calculation 70 ml/min; Estimated Glomerular Filt Rate > 60; Glucose 119 mg/dL (65-110); Phosphorus 4.5 mg/dL (2.5-4.5); Potassium 3.9 mmol/L (3.4-5.0); Sodium 137 mmol/L (137-145)
--- NOTE | 2024-09-22 08:14 | P.PNIM_ITS ---
Progress Note: A&P Assessment and Plan (1) COVID-19: Code(s): U07.1 - COVID-19 Status: Acute Assessment and Plan: COVID positive 09/20 --Continue remdesivir 200mg 09/21, then 100mg daily x4 days while admitted. Does not need to complete prior to discharge (2) Acute hypoxic respiratory failure: Code(s): J96.01 - Acute respiratory failure with hypoxia Status: Acute Assessment and Plan: 09/20 Chest x-ray Lungs Clear 09/21: - Stable oxygenation on 2L per nasal cannula. - Today is day 1 of remdesivir (at 0135) and dose 2 of dexamethasone. --Stopped Lovenox given finding of possible focal hemorrhage (vs Cyst) on head CT and negative d-dimer (<0.27) - Cont. to trend renal/hepatic function on current therapy. --On dexamethasone 6mg daily 09/22 Weaning O2, 1L>RA at 1700 Walking O2 in AM Continue to wean for sats >92% (3) Syncope: Qualifiers: Syncope type: unspecified Qualified Code(s): R55 - Syncope and collapse Code(s): R55 - Syncope and collapse Status: Acute Assessment and Plan: 09/21: - Reported hx of similar has followed with cardiology in the past - thought to be vasovagal (compounded by dehydration) historically. - Likely syncopal prior to arrival 09/13 to acute viral illness vs hypoxia. No findings of dehydration, etc. - Check orthostatic bp and if no acute findings plan for up to chair, ok to ambulate. 09/[address]1 cm hyperdense lesion which appears to be at the roof of the third ventricle, suggestive of colloid cyst. Focal hemorrhage is a potential alternative consideration. 09/22 Neurology consult Repeat Head CT in AM Plan A 73-year-old male with past medical history vasovagal syncope, hyperlipidemia, chronic hypertension, prior tobacco abuse, presented with syncope x 2 - found to have acute hypoxic resp. failure secondary to covid. D 2 of remdesivir. Stable oxygenation. Head CT cyst vs focal hemorrhage. Stopped therapeutic lovenox since no acute indication Time Spent With Patient Time: 58 minutes Subjective Date/time seen: 09/22/24 08:14 Interval history: Feels breathing close to baseline. Weaned from 1L to RA at rest tonight. ordered walking O2 for AM No dizziness or other complaints. Review of Systems Review of Systems: All systems reviewed & are unremarkable except as noted in HPI and below Exam Narrative: GENERAL APPEARANCE: Appears to be in no acute distress. HEAD: normocephalic atraumatic EYES: PERRL, EOMI. Vision grossly intact. ENT: Hearing grossly intact, no nasal discharge NECK: Neck supple, trachea midline. CARDIAC: Normal S1/S2. Rhythm is regular. No murmurs, rubs, or gallops. No cyanosis or pallor. Extremities are warm and well perfused. LUNGS: Rare crackles, no rhonchi or wheezing. Respirations even and unlabored. ABDOMEN: BS positive x 4 quadrants. Soft, nondistended, nontender. No guarding or rebound. MSK: No joint tenderness/swelling, fair strength in all extremities. PERIPHERAL VASCULAR: Peripheral pulses palpable. Normal perfusion, cap refill <2 seconds. No edema. NEURO: Follows commands. No focal deficits. SKIN: [place] without lesions or eruptions. PSYCH: Stable, no paranoia or delusional thinking. Objective Data Vital Signs Vital Signs: Vital Signs - 24 hr 09/21/24 09:43 09/21/24 09:43 09/21/24 11:16 Temperature 97.7 F Pulse Rate 55 L 71 Respiratory Rate 16 Blood Pressure 127/76 Pulse Oximetry 96 98 Oxygen Delivery Nasal Cannula Oxygen Flow Rate 2 09/21/24 11:16 09/21/24 11:17 09/21/24 12:00 Temperature 97.7 F 97.4 F L Pulse Rate 76 77 64 Respiratory Rate 16 16 Blood Pressure 152/81 H 139/88 Pulse Oximetry 99 99 Oxygen Delivery Oxygen Flow Rate 09/21/24 14:00 09/21/24 16:00 09/21/24 20:00 Temperature 97.6 F Pulse Rate 65 65 59 L Respiratory Rate 18 20 Blood Pressure 125/70 Pulse Oximetry 97 96 Oxygen Delivery Nasal Cannula Oxygen Flow Rate 1 09/21/24 20:00 09/21/24 21:08 09/22/24 00:00 Temperature 98.3 F Pulse Rate 78 59 L 59 L Respiratory Rate 20 Blood Pressure 129/85 Pulse Oximetry 96 Oxygen Delivery Oxygen Flow Rate 09/22/24 04:00 09/22/24 04:19 Temperature 97.7 F Pulse Rate 61 61 Respiratory Rate 20 Blood Pressure 116/76 Pulse Oximetry 97 Oxygen Delivery Oxygen Flow Rate Intake/Output Intake/Output: Intake & Output 09/19/24 09/20/24 09/21/24 09/22/24 23:59 23:59 23:59 23:59 Intake Total 2030 490 Output Total 1725 600 Balance 305 -110 Meds/Results Medications: Active Medications Generic Name Dose Route Start Last Admin Trade Name Saiq PRN Reason Stop Dose Admin Aspirin 81 mg 09/21/24 09:00 09/21/24 09:43 Aspirin 81 Mg Enteric Tablet PO 81 mg DAILY RIC Administration Atorvastatin Calcium 20 mg 09/21/24 09:00 09/21/24 09:43 Atorvastatin 20 Mg Tablet PO 20 mg DAILY RIC Administration Dexamethasone 6 mg 09/21/24 01:35 09/21/24 09:44 Dexamethasone 2 Mg Tablet PO 09/30/24 08:01 6 mg DAILY@0800 RIC Administration Docusate Sodium 100 mg 09/21/24 09:00 09/21/24 09:43 Docusate Sodium 100 Mg Capsule PO 100 mg DAILY RIC Administration Enoxaparin Sodium 90 mg 09/21/24 08:00 09/21/24 20:02 Enoxaparin 100 Mg/Ml Syringe SUB-Q 90 mg Q12H RIC Administration Remdesivir 100 mg in 250 mls @ 250 mls/hr 09/22/24 10:00 IVPB 09/25/24 10:59 Q24H [facility] Multivitamins Therapeutic 1 tablet 09/21/24 09:00 09/21/24 09:44 Multivitamins Therapeutic Tab (*Bkc) PO 1 tablet DAILY RIC Administration Sertraline HCl 100 mg 09/21/24 09:00 09/21/24 09:44 Sertraline Hcl 50 Mg Tablet PO 100 mg DAILY RIC Administration Radiology Results: ITS Impressions Chest X-Ray 09/20/24 20:05 IMPRESSION: No focal infiltrate or effusion. Head CT 09/21/24 06:06 Impression: 1 cm hyperdense lesion which appears to be at the roof of the third ventricle, suggestive of colloid cyst. Focal hemorrhage is a potential alternative consideration. Labs Labs: Laboratory Results - last 24 hr 09/22/24 05:44 WBC 5.6 RBC 4.67 Hgb 14.2 Hct 41.9 L MCV 89.7 MCH 30.4 MCHC 33.9 RDW 12.6 Plt Count 164 MPV 9.9 Sodium 137 Potassium 3.9 Chloride 102 Carbon Dioxide 24 Anion Gap 11 BUN 22 H Creatinine 0.84 Estim Creat Clear Calc 70 Estimated GFR > 60 Glucose 119 H Calcium 8.6 Phosphorus 4.5 Magnesium 2.0 Ferritin 286.00 H Total Bilirubin 0.7 AST 32 ALT 26 Alkaline Phosphatase 48 Total Protein 6.0 L Albumin 3.6 Quality VTE Prophylaxis VTE prophylaxis: pharmacologic ordered Hospitalist MIPS Advance Care Plan I have confirmed that the patient's Advanced Care Plan is present, code status is documented, or surrogate decision maker is listed in patient medical record.: Yes Medication Reconciliation I have utilized all available resources to obtain, update and review the patients current medications (includes all prescriptions, OTC, herbals, cannabis, and nutritional supplements).: Yes
[2024-09-22] MEDS: ENOXAPARIN 100 MG/ML SYRINGE 90 MG SUB-Q (09:33)
[2024-09-22] MEDS: SERTRALINE HCL 50 MG TABLET 100 MG PO (09:34)
[2024-09-22] MEDS: ASPIRIN 81 MG ENTERIC TABLET PO (09:34)
[2024-09-22] MEDS: ATORVASTATIN 20 MG TABLET PO (09:34)
[2024-09-22] MEDS: MULTIVITAMINS THERAPEUTIC TAB (*BKC) 1 TABLET PO (09:34)
[2024-09-22] MEDS: DOCUSATE SODIUM 100 MG CAPSULE PO (09:34)
[2024-09-22] MEDS: REMDESIVIR 100 MG/NS 250 ML 100 MG/250 ML BAG 250 MG IVPB (09:35)
[2024-09-22] MEDS: MELATONIN 5 MG TABLET PO (20:36)
[2024-09-23] VITALS (12 sets, daily range): BP systolic 100–121; BP diastolic 63–76; PULSE 46–87; RESP 14–20; TEMP 36.7–36.9; O2SAT 93–97
[2024-09-23] MEDS: MULTIVITAMINS THERAPEUTIC TAB (*BKC) 1 TABLET PO (09:27)
[2024-09-23] MEDS: ATORVASTATIN 20 MG TABLET PO (09:27)
[2024-09-23] MEDS: dexAMETHasone 2 MG TABLET 6 MG PO (09:27)
[2024-09-23] MEDS: SERTRALINE HCL 50 MG TABLET 100 MG PO (09:27)
[2024-09-23] MEDS: ASPIRIN 81 MG ENTERIC TABLET PO (09:27)
[2024-09-23] MEDS: REMDESIVIR 100 MG/NS 250 ML 100 MG/250 ML BAG 250 MG IVPB (09:28)
[2024-09-23] MEDS: DOCUSATE SODIUM 100 MG CAPSULE PO (09:28)
--- NOTE | 2024-09-23 10:22 | HOMEO2EVAL ---
Evaluation was performed at [facility] Home Oxygen Evaluation RC: Home Oxygen (O2) Evaluation Start: 09/22/24 17:46 Freq: ONCE Status: Active Protocol: RPE Activity Type Activity Date Activity User E-sign Co-sign Detail Recorded Client Recorded Date Recorded By Document 09/23/24 10:00 [email or web address] [email or web address] 09/23/24 10:22 DJO Document 09/23/24 10:05 [email or web address] [email or web address] 09/23/24 10:22 DJO Document 09/23/24 10:15 [email or web address] [email or web address] 09/23/24 10:22 DJO 09/23/24 09/23/24 09/23/24 10:00 10:05 10:15 Home O2 Evaluation [Oxygen] -Test Phase Resting Exercise Resting -Oxygen Delivery Room Air Room Air Room Air [Pulse Oximetry] -Pulse Oximetry (90-100 %) 93 95 94 [Pulse Rate] -Pulse Rate (60-100 beats/min) 65 85 66 [Evaluation] -Activity Tolerance Good [Charges] -Evaluation Charges O2 Evaluation by Pulmonary
--- NOTE | 2024-09-23 10:22 | PCRCNOTE ---
HOME O2 EVAL COMPLETE, NO REQUIREMENTS
--- NOTE | 2024-09-23 11:29 | P.CONNEU_ITS ---
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 Syncopal episode secondary to generalized weakness with underlying COVID- 19 infection for which he is being treated accordingly, receiving dexamethasone 6mg p.o. daily in addition to remdesivir 100mg IV piggyback Q 24hours and is being continued on his home medication which is aspirin 81mg daily atorvastatin 20mg daily sertraline 100mg daily also receiving Lovenox subQ 90mg subQ q.12 hours. 2. 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 Consult date: 09/23/24 HPI: Deangelo Hillman is a 73 year old maleAdmitted to the hospital through the emergency room for syncopal episode. Patient was brought to the ER by EMS from his home as per the information available while he was at the dinner table slumped over and became unconscious the contacted 911 and when the patient became awake he was diaphoretic nauseous and felt weak he mention to the physician in the emergency room that when EMS got there he felt much better and was trying to sign the refusal form but reportedly his blood pressure was low and he tended to pass out. He did not experience any chest pain difficulties in brief but he reported that he had been sick with influenza like symptoms for the last 4 days along with cough congestion generalized weakness and malaise he also reported that he has history of vasovagal episodes in the past pending gets dehydrated he has had several workups through Dr. Foote for the vasovagal syncope including stress test and echocardiogram and Holter monitoring but with no abnormality his CT of the chest was compatible with emphysematous changes but no PFT has been done. He has been taking multiple medications including amlodipine 2.5mg daily aspirin 81mg daily a g daily and alprazolam 0.25mg but he takes only 0.125mg q.i.d. p.r.n. for anxiety he is not allergic to any medication. He is a former smoker by history currently 10 drinks per week of alcohol and initial exam in the emergency room with grossly nonfocal his vital signs were normal he was afebrile, CBC was normal except platelet count 143 BMP was normal mast scan was negative and he was negative for influenza a influenza B and RSV but positive for SARs COVID, chest x-ray negative and CT of the head has revealed a 10mm Colyte cyst in the anterior 3rd ventricle Review of Systems 2 Review of Systems: All systems reviewed & are unremarkable except as noted in HPI and below PMFSH Family History Family History Father 3-vessel coronary artery disease Acute myocardial infarction Social History Social History Smoking status: Former smoker Tobacco type: cigarettes Alcohol intake: current Drinks per week: 10 Substance use: never Substance use type: does not use Do You Feel Safe in your Home?: Yes Lack of Transportation: No Lack of Food: Never True Current Housing: I Have Housing Concerned About Future Housing: No Difficulty Paying Gas/Electric Bills: No Difficulty Paying for Meds: No Currently Unemployed: No Education: Bachelor's Degree Difficulty w/ Childcare or Family Care: No Spiritual care concerns: No Meds Home Medications and Allergies Home Medications ?Medication ?Instructions ?Recorded ?Confirmed ?Type amlodipine 2.5 mg tablet (Norvasc) 2.5 mg PO DAILY 09/20/24 09/20/24 History aspirin 81 mg tablet,delayed 81 mg PO DAILY 09/20/24 09/20/24 History release (Adult Aspirin Regimen) atorvastatin 20 mg tablet (Lipitor) 20 mg PO DAILY 09/20/24 09/20/24 History docusate sodium 100 mg capsule 100 mg PO DAILY 09/20/24 09/20/24 History (Colace) multivitamin (Daily Multi-Vitamin 1 tablet PO DAILY 09/20/24 09/20/24 History tablet) sertraline 100 mg tablet 100 mg PO DAILY 09/20/24 09/20/24 History alprazolam 0.25 mg tablet 0.125 mg PO QID PRN anxiety 09/21/24 09/21/24 History Allergies Allergy/AdvReac Type Severity Reaction Status Date / Time No Known Allergies Allergy Verified 09/20/24 19:40 Vital Signs Vital Signs - 24 hr 09/22/24 12:00 09/22/24 14:00 09/22/24 16:00 Temperature 36.6 C Pulse Rate 67 64 58 L Respiratory Rate 19 Blood Pressure 120/74 Pulse Oximetry 97 Oxygen Delivery 09/22/24 20:00 09/22/24 20:00 09/22/24 21:01 Temperature 36.7 C Pulse Rate 55 L 52 L Respiratory Rate 20 Blood Pressure 122/84 Pulse Oximetry 94 94 Oxygen Delivery Room Air 09/23/24 00:00 09/23/24 04:00 09/23/24 04:21 Temperature 36.9 C Pulse Rate 47 L 46 L 53 L Respiratory Rate 20 Blood Pressure 100/63 Pulse Oximetry 96 Oxygen Delivery 09/23/24 10:00 09/23/24 10:05 09/23/24 10:15 Temperature Pulse Rate 65 85 66 Respiratory Rate Blood Pressure Pulse Oximetry 93 95 94 Oxygen Delivery Room Air Room Air Room Air Exam 2 Narrative: exam revealed him to be awake alert cooperative in no obvious acute distress able to carry on the conversation with no evidence of dysphagia dysarthria dysphonia he was able to ambulate independently has no difficulties maintaining the balance extraocular movements full with no nystagmus facial sensation was intact face symmetrical tongue midline motor examination revealed him to have normal strength and tone reflexes symmetrical plantars downgoing no evidence of gross cerebellar deficit. Results Labs 09/22/24 05:44 09/22/24 05:44
--- NOTE | 2024-09-23 11:52 | P.PNIM_ITS ---
Progress Note: A&P Assessment and Plan (1) COVID-19: Code(s): U07.1 - COVID-19 Status: Acute Assessment and Plan: COVID positive 09/20 --Continue remdesivir 200mg 09/21, then 100mg daily x4 days while admitted. Does not need to complete prior to discharge (2) Acute hypoxic respiratory failure: Code(s): J96.01 - Acute respiratory failure with hypoxia Status: Acute Assessment and Plan: 09/20 Chest x-ray Lungs Clear 09/21: - Stable oxygenation on 2L per nasal cannula. - Today is day 1 of remdesivir (at 0135) and dose 2 of dexamethasone. --Stopped Lovenox given finding of possible focal hemorrhage (vs Cyst) on head CT and negative d-dimer (<0.27) - Cont. to trend renal/hepatic function on current therapy. --On dexamethasone 6mg daily 09/22 Weaning O2, 1L>RA at 1700 Walking O2 in AM Continue to wean for sats >92% 09/23/24: * Weaned to room air and maintaining. * If continues stability today, may discharge tomorrow. (3) Syncope: Qualifiers: Syncope type: unspecified Qualified Code(s): R55 - Syncope and collapse Code(s): R55 - Syncope and collapse Status: Acute Assessment and Plan: 09/21: - Reported hx of similar has followed with cardiology in the past - thought to be vasovagal (compounded by dehydration) historically. - Likely syncopal prior to arrival 09/13 to acute viral illness vs hypoxia. No findings of dehydration, etc. - Check orthostatic bp and if no acute findings plan for up to chair, ok to ambulate. 09/[address] cm hyperdense lesion which appears to be at the roof of the third ventricle, suggestive of colloid cyst. Focal hemorrhage is a potential a lternative consideration. 09/22 Neurology consult Repeat Head CT in AM 09/23/24: * Repeat CT scan without any s/s of bleeding and cyst appears stable. * Pt has been evaluated by Neurology and no further follow up with him or treatment is needed at this time. * He may follow up as outpt with [facility] as needed. Time Spent With Patient Time with patient: 25 - 35 minutes Subjective Date/time seen: 09/23/24 0950 Interval history: Pt examined at bedside today reports he is feeling a lot better. He has been weaned off of oxygen and is maintaining his saturations. Repeat CT scan of brain is performed today as pt needed a repeat to ensure that there were no areas of additional concern for possible bleed given his syncope and the appearance of cyst vs. cannot rule out hemorrhage. Pt without additional concerns at this time. Continues to receive Dexamethasone and Remdesivir. Review of Systems Review of Systems: All systems reviewed & are unremarkable except as noted in HPI and below Exam Narrative: GENERAL APPEARANCE: Appears to be in no acute distress. HEAD: normocephalic atraumatic EYES: PERRL, EOMI. Vision grossly intact. ENT: Hearing grossly intact, no nasal discharge NECK: Neck supple, trachea midline. CARDIAC: Normal S1/S2. Rhythm is regular. No murmurs, rubs, or gallops. No cyanosis or pallor. Extremities are warm and well perfused. LUNGS: Rare crackles, no rhonchi or wheezing. Respirations even and unlabored. ABDOMEN: BS positive x 4 quadrants. Soft, nondistended, nontender. No guarding or rebound. MSK: No joint tenderness/swelling, fair strength in all extremities. PERIPHERAL VASCULAR: Peripheral pulses palpable. Normal perfusion, cap refill <2 seconds. No edema. NEURO: Follows commands. No focal deficits. SKIN: [place] without lesions or eruptions. PSYCH: Stable, no paranoia or delusional thinking. Const: General: comfortable and no acute distress Objective Data Vital Signs Vital Signs: Vital Signs - 24 hr 09/22/24 12:00 09/22/24 14:00 09/22/24 16:00 Temperature 97.8 F Pulse Rate 67 64 58 L Respiratory Rate 19 Blood Pressure 120/74 Pulse Oximetry 97 Oxygen Delivery 09/22/24 20:00 09/22/24 20:00 09/22/24 21:01 Temperature 98.0 F Pulse Rate 55 L 52 L Respiratory Rate 20 Blood Pressure 122/84 Pulse Oximetry 94 94 Oxygen Delivery Room Air 09/23/24 00:00 09/23/24 04:00 09/23/24 04:21 Temperature 98.4 F Pulse Rate 47 L 46 L 53 L Respiratory Rate 20 Blood Pressure 100/63 Pulse Oximetry 96 Oxygen Delivery 09/23/24 09:25 09/23/24 09:25 09/23/24 10:00 Temperature Pulse Rate 47 L 65 Respiratory Rate Blood Pressure Pulse Oximetry 93 Oxygen Delivery Room Air Room Air 09/23/24 10:05 09/23/24 10:15 Temperature Pulse Rate 85 66 Respiratory Rate Blood Pressure Pulse Oximetry 95 94 Oxygen Delivery Room Air Room Air Intake/Output Intake/Output: Intake & Output 09/20/24 09/21/24 09/22/24 09/23/24 23:59 23:59 23:59 23:59 Intake Total 2030 2130 580 Output Total 1725 1750 2 Balance 305 380 578 Meds/Results Medications: Active Medications Generic Name Dose Route Start Last Admin Trade Name Freq PRN Reason Stop Dose Admin Aspirin 81 mg 09/21/24 09:00 09/23/24 09:27 Aspirin 81 Mg Enteric Tablet PO 81 mg DAILY RIC Administration Atorvastatin Calcium 20 mg 09/21/24 09:00 09/23/24 09:27 Atorvastatin 20 Mg Tablet PO 20 mg DAILY RIC Administration Dexamethasone 6 mg 09/21/24 01:35 09/23/24 09:27 Dexamethasone 2 Mg Tablet PO 09/30/24 08:01 6 mg DAILY@0800 RIC Administration Docusate Sodium 100 mg 09/21/24 09:00 09/23/24 09:28 Docusate Sodium 100 Mg Capsule PO 100 mg DAILY RIC Administration Enoxaparin Sodium 90 mg 09/21/24 08:00 09/22/24 09:33 Enoxaparin 100 Mg/Ml Syringe SUB-Q 90 mg Q12H RIC Administration Remdesivir 100 mg in 250 mls @ 250 mls/hr 09/22/24 10:00 09/23/24 09:28 IVPB 09/25/24 10:59 250 mls/hr Q24H RIC Administration Melatonin 5 mg 09/22/24 21:00 09/22/24 20:36 Melatonin 5 Mg Tablet PO 5 mg HS RIC Administration Multivitamins Therapeutic 1 tablet 09/21/24 09:00 09/23/24 09:27 Multivitamins Therapeutic Tab (*Bkc) PO 1 tablet DAILY RIC Administration Sertraline HCl 100 mg 09/21/24 09:00 09/23/24 09:27 Sertraline Hcl 50 Mg Tablet PO 100 mg DAILY RIC Administration Radiology Results: ITS Impressions Chest X-Ray 09/20/24 20:05 IMPRESSION: No focal infiltrate or effusion. Head CT 09/23/24 11:15 IMPRESSION: 1. 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 Quality VTE Prophylaxis VTE prophylaxis: pharmacologic ordered
[2024-09-24] VITALS (7 sets, daily range): BP systolic 125–132; BP diastolic 73–84; PULSE 53–61; RESP 18–20; TEMP 36.6; O2SAT 94–98
[2024-09-24 05:05] LABS: Hematocrit 42.9 % (42.0-52.0); Hemoglobin 14.7 g/dL (14.0-18.0); Immature Granulocyte Absolute 0.03 K/mm3 (0.00-0.031); Immature Granulocyte Percent A 0.5 % (0-0.5); Lymphocytes Absolute Auto 1.27 K/mm3 (0.9-3.2); Mean Corpuscular HGB Conc 34.3 g/dl (32-36); Mean Corpuscular Hemoglobin 30.9 pg (26-34); Mean Corpuscular Volume 90.1 fl (80-100); Mean Platelet Volume 10.1 fl (7.4-10.4); Monocytes Absolute Auto 0.4 K/mm3 (0.1-0.6); Monocytes Percent Auto 7.6 % (2.6-8.5); Neutrophils Absolute Auto 3.8 K/mm3 (1.3-6.7); Neutrophils Percent Auto 68.9 % (45.5-73.1); Platelet Count Result 191 k/mm3 (150-375); Red Blood Count 4.76 M/mm3 (4.6-6.20); Red Cell Distribution Width 12.3 % (11.5-14.5); White Blood Count 5.5 K/mm3 (4.5-10.0)
[2024-09-24 05:30] LABS: Alanine Aminotransferase 28 U/L (6-50); Albumin Level 3.7 g/dL (3.5-5.1); Alkaline Phosphatase 48 U/L (38-126); Anion Gap 8 mmol/L (4-12); Aspartate Amino Transferase 27 U/L (17-59); Bilirubin,Total 0.8 mg/dL (0.2-1.3); Blood Urea Nitrogen 24 mg/dL (9-20); Calcium 8.7 mg/dL (8.4-10.2); Carbon Dioxide 27 mmol/L (22-30); Chloride 102 mmol/L (98-107); Estimated CRCL calculation 62 ml/min; Estimated Glomerular Filt Rate > 60; Glucose 113 mg/dL (65-110); Magnesium 2.3 mg/dL (1.6-2.3); Potassium 4.9 mmol/L (3.4-5.0); Sodium 137 mmol/L (137-145)
[2024-09-24] MEDS: dexAMETHasone 2 MG TABLET 6 MG PO (09:41)
[2024-09-24] MEDS: DOCUSATE SODIUM 100 MG CAPSULE PO (09:42)
[2024-09-24] MEDS: amLODIPine BESYLATE 2.5 MG TABLET PO (09:42)
[2024-09-24] MEDS: ASPIRIN 81 MG ENTERIC TABLET PO (09:42)
[2024-09-24] MEDS: SERTRALINE HCL 50 MG TABLET 100 MG PO (09:42)
[2024-09-24] MEDS: MULTIVITAMINS THERAPEUTIC TAB (*BKC) 1 TABLET PO (09:42)
[2024-09-24] MEDS: ATORVASTATIN 20 MG TABLET PO (09:43)
[2024-09-24] MEDS: REMDESIVIR 100 MG/NS 250 ML 100 MG/250 ML BAG 250 MG IVPB (09:43)
--- NOTE | 2024-09-24 15:28 | P.DS_ITS ---
DS: Admitting Diagnosis Discharge Date 09/24/24 Admitting Diagnosis Acute hypoxic respiratory failure COVID-19 Syncope DS: Discharge Diagnosis Discharge Diagnosis (1) COVID-19: Code(s): U07.1 - COVID-19 Status: Acute (2) Acute hypoxic respiratory failure: Code(s): J96.01 - Acute respiratory failure with hypoxia Status: Acute (3) Syncope: Qualifiers: Syncope type: unspecified Qualified Code(s): R55 - Syncope and collapse Code(s): R55 - Syncope and collapse Status: Acute DS: Summary Hospital Course Reason for hospitalization: Acute hypoxic respiratory failure COVID-19 Syncope Hospital Course: Final diagnosis: Acute hypoxic respiratory failure, COVID-19, syncope Status at Discharge Cognitive/behavioral status at discharge: Alert oriented x3 Functional status at discharge: independent ambulation Overall status at discharge: patient is progressing back to baseline Time Spent with Patient Time attestation: Total time spent providing and/or coordinating discharge services: Time spent: Greater than 30 minutes Exam Narrative: General: In no acute distress, well nourished Head: atraumatic, no encephalopathy Eyes: EOMI, PERRLA, sclera clear ENT: moist mucous membranes, nasal passages clear Neck: supple, no JVD, no adenopathy, trachea midline Cardiac: Normal S1 and S2. No murmur, gallops or friction rubs, peripheral pulses intact. Respiratory: Lungs clear to auscultation, no adventitious lung sounds Gastrointestinal: soft, non-distended, non-tender, normoactive bowel sounds. : voiding without difficulty. Extremities: moves all extremities well, no edema, good ROM, strength 5/5 Skin: clean, dry, intact. No wounds or lesions. Neuro: Alert and oriented x4, cranial nerves intact, no neuro deficits. Psych: normal mood, normal affect, interactive DS: Data Data Completed and Pending Completed studies during hospitalization: Head CT x3 Chest x-ray Pending studies at discharge: None Labs on day of discharge: Labs from last 24 hours 09/24/24 04:41 WBC 5.5 RBC 4.76 Hgb 14.7 Hct 42.9 MCV 90.1 MCH 30.9 MCHC 34.3 RDW 12.3 Plt Count 191 MPV 10.1 Immature Gran % (Auto) 0.5 Neut % (Auto) 68.9 Lymph % (Auto) 23.0 [place] % (Auto) 7.6 Eos % (Auto) 0.0 Baso % (Auto) 0.0 L Lymph # (Auto) 1.27 [place] # (Auto) 0.4 Eos # (Auto) 0.0 Baso # (Auto) 0.0 Abs Immat Gran (auto) 0.03 Absolute Neuts (auto) 3.8 Absolute Nucleated RBC 0.000 Nucleated RBC % 0.0 Sodium 137 Potassium 4.9 Chloride 102 Carbon Dioxide 27 Anion Gap 8 BUN 24 H Creatinine 0.95 Estim Creat Clear Calc 62 Estimated GFR > 60 Glucose 113 H Calcium 8.7 Magnesium 2.3 Total Bilirubin 0.8 AST 27 ALT 28 Alkaline Phosphatase 48 Total Protein 6.0 L Albumin 3.7 Procedures/Treatments: none Discharge Plan Discharge Attending physician on discharge: Indiana Guerrero Consulting providers: Emil Guillaume Discharging Clinician: Roxann Grady Anticipated Discharge Date/Time: 09/24/24 15:27 Patient Disposition: Home, Self-Care Activity: as tolerated Diet: as tolerated and heart healthy Discharge Instructions: * You were given remdesivir and dexamethasone while in the hospital for COVID- 19. * Follow-up with her primary care doctor in 1 week. Patient Instructions: COVID-19 (Coronavirus Disease 2019) (DC) Patient Language: [place] Stand Alone Forms: General Discharge Information Follow-up/Referrals: DanielaChase MD [Primary Care Provider] - 1 Week Discharge Medications: Continued multivitamin [Daily Multi-Vitamin] Tablet 1 tablet PO DAILY aspirin [Adult Aspirin Regimen] 81 mg tablet,delayed release (DR/EC) 81 mg PO DAILY docusate sodium [Colace] 100 mg capsule 100 mg PO DAILY sertraline 100 mg tablet 100 mg PO DAILY atorvastatin [Lipitor] 20 mg tablet 20 mg PO DAILY amlodipine [Norvasc] 2.5 mg tablet 2.5 mg PO DAILY alprazolam 0.25 mg tablet 0.125 mg PO QID PRN (Reason: anxiety) Date of admission: 09/21/24 06:46 Primary Care Provider: DanielaChase Admitting Provider: Belkis Lanier Attending physician on admission: Roxann Grady Condition: Improved Quality VTE Prophylaxis VTE prophylaxis: pharmacologic ordered Hospitalist MIPS Heart Failure (Exclusion) Patient has history of Heart Transplant or Left Ventricular Assistive Device?: No IF YES, STOP HERE Heart Failure (Qualifier) Patient has current or prior documentation of LVEF less than or equal to 40%, or mod/servere depressed LVSF?: No IF NO, STOP HERE
== END 2024-09-24 16:45 | disposition home or self-care (01) | DRG 177 ==
LOC: ANHED 23:30 → ANH3MEDSUR 09-21 03:13 → ANH2MED 09-21 03:44
PROVIDERS: Nurse Practitioner Adult Health; Nurse Practitioner Family; Student in an Organized Health Care Education/Training Program; Admitting Provider General Practice; Emergency Provider Physician Assistant; PCP Internal Medicine; Visit Provider Nurse Practitioner Acute Care
DX: U07.1 COVID-19 (principal); J96.01 Acute respiratory failure with hypoxia; Q04.6 Congenital cerebral cysts; R55 Syncope and collapse; E78.5 Hyperlipidemia, unspecified; I10 Essential (primary) hypertension; Z87.891 Personal history of nicotine dependence
CPT/HCPCS: 36415; 70450; 71045; 80048; 80053; 82728; 83735; 83880; 84100; 84484; 85025; 85027; 85380; 87637; 93005; 94618; 94640; 96365; 99285; A9270; G0378; J0248; J1650; J8540